=== PATIENT | male | born 1970 | race Caucasian/White ===

== ENCOUNTER 2021-02-24 01:56 | Inpatient (IN) | payer OTHER, SELFPAY ==
[2021-02-24] VITALS (22 sets, daily range): BP systolic 136–179; BP diastolic 65–120; PULSE 71–141; RESP 15–29; TEMP 35.7–37.3; O2SAT 92–98; BMI 25.8
--- NOTE | ~2021-02-24 | US_ITS ---
EXAMINATION: US ABDOMEN LIMITED CLINICAL INFORMATION: Pancreatitis. Assess biliary tract. COMPARISON: CT abdomen and pelvis with contrast 02/24/2021. TECHNIQUE: Real-time imaging of the right upper quadrant abdominal viscera. FINDINGS: PANCREAS: The visualized pancreas is uniform in echogenicity with no visible pancreatic ductal dilatation. No visible pseudocyst. LIVER: The liver is mildly enlarged and smooth in contour with increased parenchymal echogenicity consistent with hepatic steatosis. There is no intrahepatic ductal dilatation. The portal vein is patent. No focal hepatic parenchymal lesion. GALLBLADDER: There is strong shadowing from the gallbladder fossa suggesting stone filled gallbladder. Patient is tender in the gallbladder fossa with transducer compression. COMMON BILE DUCT: Enlarged measuring 0.9-1.2 cm and caliber. No visible obstructing calculus. RIGHT KIDNEY: Normal. No hydronephrosis. No renal calculi or focal parenchymal lesions. The kidney measures 11.2 cm in maximum dimension. FREE FLUID: There is mild ascites around the liver. US/US abdomen limited IMPRESSION: 1. Strong shadowing from the gallbladder fossa suggesting stone filled gallbladder and consistent with recent CT abdomen. Common duct distended 0.9-1.2 cm. No intrahepatic ductal dilatation. 2. Pancreas partly obscured by bowel gas. Visualized portions show no pancreatic ductal distention or pseudocyst. 3. Hepatic steatosis. Mild ascites.
--- NOTE | ~2021-02-24 | CT_ITS ---
EXAMINATION: CT ABDOMEN AND PELVIS WITH CONTRAST CLINICAL INFORMATION: Acute pancreatitis COMPARISON: Ultrasound abdomen 02/24/2021 TECHNIQUE: Multidetector volumetric images were obtained from the superior aspect of the liver through the pubic symphysis following administration 85 mL of Omnipaque 350 intravenous contrast. Sagittal and coronal reformatted images were obtained on the technologist's workstation. Oral contrast: No This CT examination was performed using dose optimization techniques as appropriate, variously including the following: *Automated exposure control *Adjustment of mA and/or kV according to patient size (this includes techniques or standardized protocols for targeted exams where dose is matched to indication/reason for exam; i.e. extremities or head) *Use of iterative reconstruction technique DLP: 546 mGy-cm FINDINGS: LUNG BASES: There is a small left pleural effusion with left lower lobe consolidation/atelectasis. There is minimal right pleural effusion. There is lingular atelectasis as well. The heart size is normal. LIVER, GALLBLADDER, AND BILIARY TREE: The liver is normal in size, shape, and diffusely attenuated. No focal hepatic lesion or biliary ductal dilatation is present. There are several radiolucent and radiopaque gallstones in a contracted gallbladder. PANCREAS: The pancreas is diffusely enlarged, heterogeneous and peripancreatic moderate fat stranding consistent with acute pancreatitis. There is moderate fluid within the paracolic gutters. Fluid within the perihepatic and bibiana splenic space. SPLEEN: The spleen is unremarkable. ADRENAL GLANDS: Unremarkable. KIDNEYS AND URETERS: The kidneys are normal in size, shape, and attenuation. No hydronephrosis, hydroureter, or calculi seen. No perinephric stranding. BLADDER: Unremarkable. GASTROINTESTINAL TRACT: There is scattered stool, diverticuli and gas seen throughout the colon without distention. The small bowel loops are normal caliber. ABDOMINAL WALL: There is mild haziness in the periumbilical space likely fat stranding with a small hernia. LYMPH NODES: Normal. VASCULAR: Unremarkable. PELVIC VISCERA: Unremarkable. OSSEOUS STRUCTURES: Unremarkable. CT/CT abdomen pelvis w con IMPRESSION: Diffuse acute pancreatitis, edema with moderate ascites seen extending throughout the entire abdomen and pelvis. There is no necrotizing pancreatitis Diffuse hypoattenuation of liver likely fatty infiltration. Suspect small umbilical hernia with fat stranding.
--- NOTE | ~2021-02-24 | CT_ITS ---
EXAMINATION: CT ABDOMEN AND PELVIS WITH CONTRAST CLINICAL INFORMATION: Abdominal pain COMPARISON: None TECHNIQUE: Multidetector volumetric images were obtained from the superior aspect of the liver through the pubic symphysis following administration 85 mL of Omnipaque 350 intravenous contrast. Sagittal and coronal reformatted images were obtained on the technologist's workstation. Oral contrast: No This CT examination was performed using dose optimization techniques as appropriate, variously including the following: *Automated exposure control *Adjustment of mA and/or kV according to patient size (this includes techniques or standardized protocols for targeted exams where dose is matched to indication/reason for exam; i.e. extremities or head) *Use of iterative reconstruction technique DLP: 591 mGy-cm FINDINGS: LUNG BASES: The visualized lung bases are unremarkable. LIVER, GALLBLADDER, AND BILIARY TREE: The liver demonstrates diffuse hypoattenuation consistent with steatosis. No focal hepatic lesion or biliary ductal dilatation is present. Gallbladder appears partially contracted and contains multiple gallstones. Common bile duct is nondilated. PANCREAS: There is extensive peripancreatic stranding and fluid consistent with pancreatitis, without focal collection. Fluid tracks along the paracolic gutters and the pelvis. There is mild hypoattenuation of some regions of the pancreatic head and body, which could reflect developing necrosis. SPLEEN: Unremarkable. ADRENAL GLANDS: Unremarkable. KIDNEYS AND URETERS: The kidneys are normal in size, shape, and attenuation. No hydronephrosis, hydroureter, or obstructing calculi seen. BLADDER: Unremarkable. GASTROINTESTINAL TRACT: No evidence of bowel obstruction. There is some stranding adjacent to the colon in the right abdomen which is favored to be reactive from pancreatitis. No free air is seen. ABDOMINAL WALL: No significant hernia is appreciated. LYMPH NODES: Normal. VASCULAR: Unremarkable. PELVIC VISCERA: Unremarkable. OSSEOUS STRUCTURES: Asymmetric degenerative change of the left sacroiliac joint, with minimal degenerative change in the right. CT/CT abdomen pelvis w con IMPRESSION: 1. Extensive peripancreatic inflammation consistent with pancreatitis. Regions of mild hypoattenuation in the pancreatic head and body could represent developing necrosis. Peripancreatic fluid is also present, extending along the paracolic gutters into the pelvis without focal collection. 2. Contracted gallbladder with multiple gallstones. 3. Hepatic steatosis.
--- NOTE | ~2021-02-24 | XR_ITS ---
EXAMINATION: XR CHEST CLINICAL INFORMATION: Shortness of breath COMPARISON: CT 02/24/2021 TECHNIQUE: Frontal view of the chest was obtained. FINDINGS: The lungs are mildly hypoinflated. Streaky bibasilar opacities are present, left greater than right and new from prior, suggesting atelectasis. Upper lungs are well-aerated. No evidence of pneumothorax or significant pleural effusion. The cardiomediastinal contour is unremarkable. No acute osseous findings are seen. XR/XR chest 1V IMPRESSION: New streaky bibasilar opacities, left greater than right, suggesting atelectasis.
--- NOTE | ~2021-02-24 | XR_ITS ---
EXAMINATION: XR ABDOMEN COMPLETE CLINICAL INDICATION: Abdominal pain, pancreatitis/necrosis, question perforation COMPARISON: CT 02/24/2021 TECHNIQUE: 2 views of the abdomen. FINDINGS: No intra-abdominal free air is seen. The bowel gas pattern is nonobstructive. Scattered stool is present in the colon. No suspicious calcifications are seen. There are streaky opacities at the lung bases, left greater than right, suggesting atelectasis. No acute osseous findings are seen. XR/XR abdomen min 2V IMPRESSION: No evidence of intra-abdominal free air.
[2021-02-24 02:54] LABS: Basophils Percent Auto 0.1 % (0-2); Hematocrit 48.8 % (42-52); Hemoglobin 17.1 g/dl (14.0-18.0); Imm Gran Abs Auto 0.07 X10*3/uL (0.00-0.03); Imm Gran Pct Auto 0.5 % (0.0-0.4); Lymphocytes Absolute Auto 0.3 X10*3/uL (1.2-4.9); Lymphocytes Percent Auto 1.8 % (20-40); Mean Corpuscular Hemoglobin 31.7 pg (27.0-33.0); Mean Corpuscular Volume 90.5 fL (80-98); Mean Platelet Volume 8.9 fL (9.4-12.4); Monocytes Absolute Auto 0.7 X10*3/uL (0.1-1.2); Monocytes Percent Auto 4.7 % (2-11); Neutrophils Absolute Auto 13.6 X10*3/uL (2.0-8.3); Neutrophils Percent Auto 92.9 % (45-73); Platelet Count 311 X10*3/uL (160-400); Red Blood Count 5.39 X10*6/uL (4.60-5.80); Red Cell Distribution Width 13.1 % (11.0-16.0); SCAN SMEAR FLAG 1; White Blood Count 14.6 X10*3/uL (4.8-10.8)
[2021-02-24 02:56] LABS: MANUAL DIFF FLAG SCAN
[2021-02-24 02:59] LABS: Glucose Urine UA 250 MG/DL (NEG); Leukocyte Esterase Urine NEG (NEG); Nitrite Urine POS (NEG); PH 5.5 (5.0-8.0); Specific Gravity - Urine >= 1.030 (1.005-1.025); UACC Culture Trigger YES; Urine Blood TRACE (NEG); Urine Ketones >=80 MG/DL (NEG); Urine Protein 2+ MG/DL (NEG-TRACE)
[2021-02-24 03:00] LABS: Appearance Urine TURBID; Color Urine ORANGE
[2021-02-24 03:13] LABS: Amorphous Sediment Urine 4+ /LPF; RBC Urine 0 /HPF (0); WBC Urine 0 /HPF (0-4)
[2021-02-24 03:15] LABS: SLIDE REVIEW VERIFIED
[2021-02-24 03:23] LABS: Ethanol < 10 mg/dL
[2021-02-24 03:26] LABS: Alanine Aminotransferase 619 U/L (0-40); Albumin Level 4.8 g/dL (3.5-5.0); Alkaline Phosphatase 113 U/L (39-117); Anion Gap 19 (12-20); Aspartate Amino Transferase 388 U/L (5-37); Bilirubin Direct 1.8 mg/dL (0.0-0.5); Bilirubin Total 2.9 mg/dL (0.0-1.0); Blood Urea Nitrogen 17 mg/dL (9-16); Calcium 10.1 mg/dL (8.4-10.2); Carbon Dioxide 23 mmol/L (22-29); Chloride 96 mmol/L (96-108); Creatinine Clr Calc Pharmacy 94.1; Estimated Glomerular Filt Rate > 60; Glucose Random 223 mg/dL (60-115); Lipase 1049 U/L (8-78); Potassium 4.2 mmol/L (3.3-5.1); Sodium 134 mmol/L (135-145); Total Protein 8.3 g/dL (6.5-8.0)
--- NOTE | 2021-02-24 04:40 | ED.ABDPAIN ---
HPI - Abdominal Pain General Chief Complaint: Abdominal Pain Stated Complaint: GI issues Time Seen by Provider: 02/24/21 03:05 Source: patient Mode of arrival: ambulatory History of Present Illness HPI narrative: 50-year-old male without significant past medical history other than daily drinker and states he drink yesterday and then developed acute onset of abdominal pain with chills and nausea but denies any vomiting or diarrhea and denies any past surgical history. Otherwise, patient denies shortness of breath, chest pain/palpitations, urinary pain/burning/frequency. Patient denies ever having any withdrawal symptoms from abstaining from alcohol. Related Data Allergies Allergy/AdvReac Type Severity Reaction Status Date / Time OPIATES Allergy Intermediate VOMITING Uncoded 04/25/20 16:30 narcotics Allergy Unknown Uncoded 05/02/12 00:00 Review of Systems Review of Systems Pertinent positives and negatives as stated in HPI 10 point review of systems is otherwise negative. Physical Exam Vital Signs: Vital Signs: Last Vital Signs Temp 98.4 F 02/24/21 02:13 Pulse 88 02/24/21 05:10 Resp 15 02/24/21 05:10 BP 179/105 H 02/24/21 05:10 Pulse Ox 97 02/24/21 05:10 Body Mass Index 25.8 VITAL SIGNS: Reviewed. GENERAL: Well developed, well nourished, in no acute distress. HEAD: Normocephalic/atraumatic EYES: PERRLA, EOMI with icterus noted OROPHARYNX: no oral lesions noted, posterior pharynx clear and non-erythematous without noted tonsillar enlargement/erythema/exudates NECK: Supple, no adenopathy LUNGS: Normal breath sounds. No adventitious sounds or accessory muscle use. SpO2<98> CARDIOVASCULAR: Regular rate and rhythm without noted murmurs ABDOMEN: Soft, diffusely tender, non-distended with bowel sounds. Voluntary guarding MUSCULOSKELETAL: No tenderness, deformities, or effusions noted on gross inspection. EXTREMITIES: No cyanosis, clubbing or edema. SKIN: Inspection of the skin reveals no rashes, but noted jaundice and mild diaphoresis NEUROLOGIC: Alert and oriented x 4. Strength and sensation to light touch were grossly intact x 4. Course Course Course Narrative: 50-year-old male with history and clinical presentation consistent with pancreatitis favors alcoholic versus biliary. Review of all investigations positive for acute pancreatitis and will evaluate for possible biliary etiology. MDM - Abdominal Pain Lab Data Result diagrams: 02/24/21 02:47 02/24/21 02:47 Labs: Lab Results 02/24/21 02/24/21 02/24/21 Range/Units 02:47 02:47 02:47 WBC 14.6 H (4.8-10.8) X10*3/uL RBC 5.39 (4.60-5.80) X10*6/uL Hgb 17.1 (14.0-18.0) g/dl Hct 48.8 (42-52) % MCV 90.5 (80-98) fL MCH 31.7 (27.0-33.0) pg MCHC 35.0 (31.0-36.0) g/dl RDW 13.1 (11.0-16.0) % Plt Count 311 (160-400) X10*3/uL MPV 8.9 L (9.4-12.4) fL Immature Gran % (Auto) 0.5 H (0.0-0.4) % Neut % (Auto) 92.9 H (45-73) % Lymph % (Auto) 1.8 L (20-40) % Clarke % (Auto) 4.7 (2-11) % Eos % (Auto) 0.0 (0-4) % Baso % (Auto) 0.1 (0-2) % Lymph # (Auto) 0.3 L (1.2-4.9) X10*3/uL Clarke # (Auto) 0.7 (0.1-1.2) X10*3/uL Eos # (Auto) 0.0 (0.0-0.4) X10*3/uL Baso # (Auto) 0.0 (0.0-0.2) X10*3/uL Abs Immat Gran (auto) 0.07 H (0.00-0.03) X10*3/uL Absolute Neuts (auto) 13.6 H (2.0-8.3) X10*3/uL Absolute Nucleated RBC 0.000 (0.0-0.012) X10*3/uL Nucleated RBC % (auto) 0.0 (0.0-0.2) /100WBC Smear Tech's Comments VERIFIED Sodium 134 L (135-145) mmol/L Potassium 4.2 (3.3-5.1) mmol/L Chloride 96 (96-108) mmol/L Carbon Dioxide 23 (22-29) mmol/L Anion Gap 19 (12-20) BUN 17 H (9-16) mg/dL Creatinine 0.98 (0.5-1.4) mg/dL Estim Creat Clear Calc 94.1 Estimated GFR > 60 Random Glucose 223 H (60-115) mg/dL Lactic Acid (0.5-2.0) mmol/L Calcium 10.1 (8.4-10.2) mg/dL Total Bilirubin 2.9 H (0.0-1.0) mg/dL Direct Bilirubin 1.8 H (0.0-0.5) mg/dL AST 388 H (5-37) U/L ALT 619 H (0-40) U/L Alkaline Phosphatase 113 (39-117) U/L Total Protein 8.3 H (6.5-8.0) g/dL Albumin 4.8 (3.5-5.0) g/dL Lipase 1049 H (8-78) U/L Urine Color Urine Appearance Urine pH (5.0-8.0) Ur Specific [place] (1.005-1.025) Urine Protein (NEG-TRACE) MG/DL Urine Glucose (UA) (NEG) MG/DL Urine Ketones (NEG) MG/DL Urine Blood (NEG) Urine Nitrite (NEG) Ur Leukocyte Esterase (NEG) Urine RBC (0) /HPF Urine WBC (0-4) /HPF Ur Squamous Epith Cells /LPF Amorphous Sediment /LPF Urine Bacteria /LPF Ethyl Alcohol < 10 mg/dL COVID-19 (ACE) (Negative) COVID-19 Clin Com 02/24/21 02/24/21 02/24/21 Range/Units 02:47 04:52 05:09 WBC (4.8-10.8) X10*3/uL RBC (4.60-5.80) X10*6/uL Hgb (14.0-18.0) g/dl Hct (42-52) % MCV (80-98) fL MCH (27.0-33.0) pg MCHC (31.0-36.0) g/dl RDW (11.0-16.0) % Plt Count (160-400) X10*3/uL MPV (9.4-12.4) fL Immature Gran % (Auto) (0.0-0.4) % Neut % (Auto) (45-73) % Lymph % (Auto) (20-40) % Clarke % (Auto) (2-11) % Eos % (Auto) (0-4) % Baso % (Auto) (0-2) % Lymph # (Auto) (1.2-4.9) X10*3/uL [place] # (Auto) (0.1-1.2) X10*3/uL Eos # (Auto) (0.0-0.4) X10*3/uL Baso # (Auto) (0.0-0.2) X10*3/uL Abs Immat Gran (auto) (0.00-0.03) X10*3/uL Absolute Neuts (auto) (2.0-8.3) X10*3/uL Absolute Nucleated RBC (0.0-0.012) X10*3/uL Nucleated RBC % (auto) (0.0-0.2) /100WBC Smear Tech's Comments Sodium (135-145) mmol/L Potassium (3.3-5.1) mmol/L Chloride (96-108) mmol/L Carbon Dioxide (22-29) mmol/L Anion Gap (12-20) BUN (9-16) mg/dL Creatinine (0.5-1.4) mg/dL Estim Creat Clear Calc Estimated GFR Random Glucose (60-115) mg/dL Lactic Acid 3.4 H* (0.5-2.0) mmol/L Calcium (8.4-10.2) mg/dL Total Bilirubin (0.0-1.0) mg/dL Direct Bilirubin (0.0-0.5) mg/dL AST (5-37) U/L ALT (0-40) U/L Alkaline Phosphatase (39-117) U/L Total Protein (6.5-8.0) g/dL Albumin (3.5-5.0) g/dL Lipase (8-78) U/L Urine Color ORANGE Urine Appearance TURBID Urine pH 5.5 (5.0-8.0) Ur Specific [place] >= 1.030 H (1.005-1.025) Urine Protein 2+ H (NEG-TRACE) MG/DL Urine Glucose (UA) 250 H (NEG) MG/DL Urine Ketones >=80 (NEG) MG/DL Urine Blood TRACE (NEG) Urine Nitrite POS H (NEG) Ur Leukocyte Esterase NEG (NEG) Urine RBC 0 (0) /HPF Urine WBC 0 (0-4) /HPF Ur Squamous Epith Cells NONE /LPF Amorphous Sediment 4+ /LPF Urine Bacteria NONE /LPF Ethyl Alcohol mg/dL COVID-19 (ACE) Negative (Negative) COVID-19 Clin Com See Note Discharge Plan Discharge Clinical Impression: Acute pancreatitis, Sepsis Patient Disposition: Admitted As Inpatient [facility] Past Medical History Source: nursing notes reviewed Social History Social History Advance Directives: No Advance Directives Information Provided: No
[2021-02-24] MEDS: 0.9 % Sodium Chloride 2,000 ML 999 ML IV ×2 (04:58→06:54)
[2021-02-24] MEDS: HYDROmorphone HCl 0.5 MG/0.5 ML SYRINGE IVPUSH (04:58)
--- NOTE | 2021-02-24 05:08 | PC.NURSE ---
18g IV access established in left AC. Labs drawn and sent for analysis. Normal Saline 2L infusing per MD order, and medicated with Dilaudid as ordered. Pt's also at the bedside. Pt c/o upper abdominal pain & spasms for the past 17 hours. Pt guarding, reports 9 out of 10 pain at this time. Sinus tachycardia on the monitor 110-120, elevated BP 170/110s. Primary RN (Naye Jackson) aware. Will continue to monitor.
[2021-02-24 05:22] LABS: Lactic Acid 3.4 mmol/L (0.5-2.0)
[2021-02-24 05:32] LABS: COVID-19 Test Negative (Negative); IDNOW Serial# 9DD0AD1C
[2021-02-24] MEDS: iohexoL 350 MG/ML 100 ML INFUS..BTL 85 ML IV (05:37)
[2021-02-24] MEDS: Piperacillin Sodium/Tazobactam 3.375 GM in 0.9 % Sodium Chloride 50 ML IV (06:55)
[2021-02-24 06:56] LABS: Reflex Lactate? Lactic Acid Added
--- NOTE | 2021-02-24 08:15 | PC.NURSE ---
dr. navarro at bedside updating pt/family of plan of care.
[2021-02-24 08:18] LABS: ~Lactic Acid-LAB USE ONLY 1.9 mmol/L (0.5-2.0)
[2021-02-24] MEDS: ondansetron HCL 4 MG/2 ML VIAL IVPUSH ×2 (08:22→16:48)
[2021-02-24] MEDS: HYDROmorphone HCl 1 MG/ML SYRINGE IVPUSH ×2 (08:22→11:22)
--- NOTE | 2021-02-24 09:59 | P.CNGI_ITS ---
History of Present Illness Data of Consult Service Date: 02/24/21 Requesting physician: Rubi Arce Primary Care Provider: None Physician HPI Reason for consult: pancreatitis 50-year-old male with no significant past medical history who I am asked to see for assessment of pancreatitis. He presented to the ED with severe upper abdominal pain 10/10 radiating across the whole abdomen. this started yesterday and was preceded by bilious emesis and nausea. he never had this before, and denies fever, rectla bleeding, melena. Pain is worse with lying and deep breathing. He does drink alcohol-Wolof cream (17%) daily for many years. He uses mmko-[id number] ibuprofen and Tylenol generally once or twice a week. He was noted to have significantly elevated LFTs - AST 388, ALT 619, total b ilirubin 2.9, w/ lipase level of 1049. CT scan of the abdomen showed extensive bibiana pancreatic inflammation consistent with pancreatitis. There were regions of mild hypoattenuation in the pancreatic head and body which could represent developing necrosis as well as gallstones. There is a family history of gallstones in his mother and brother Review of Systems Eyes: Eyes: Reports requires corrective lenses ENT: Reports dizziness (When standing, began yesterday after onset of pain) and Reports post nasal drip Cardiovascular: Cardiovascular: Denies chest pain, Denies syncope, Denies palpitations and Denies dyspnea Respiratory: Respiratory: Denies cough, Reports pain on inspiration (Abdominal pain) and Denies dyspnea Gastrointestinal: Gastrointestinal: Reports as per HPI Genitourinary: Genitourinary: Denies dysuria and Denies urinary frequency Neurologic: Reports dizziness (When standing, began yesterday after onset of pain) and Denies syncope Endocrine: Endocrine: Denies palpitations Hematologic/Lymphatic: Hematologic/Lymphatic: Denies easy bleeding and Denies easy bruising Allergic/Immunologic: Allergic/Immunologic: Denies urticaria PMFSH Past Medical History Medical History No significant medical problems Family History Family History (Updated 02/24/21 @ 11:40 by Frida Harman MD) Brother Cholelithiasis Pertinent family history: Gall Stones in mother and brother Social History Social History Alcohol intake: current Alcohol intake frequency: 0-2 drinks per day Patient Tobacco Use Status: Never used Tobacco Use of substances other than those prescribed or required for medical reasons: Yes Substance Use Type: Marijuana Substance Use Frequency: Occasionally Advance Directives: No Advance Directives Information Provided: No Meds Allergies Allergy/AdvReac Type Severity Reaction Status Date / Time OPIATES Allergy Intermediate VOMITING Uncoded 04/25/20 16:30 narcotics Allergy Unknown Uncoded 05/02/12 00:00 Home Medications Medication Instructions Recorded Confirmed Last Taken Type No Known Home Meds 02/24/21 02/24/21 Unknown History Physical Exam Vital Signs: Vital Signs: Last Vital Signs Temp 98.7 F 02/24/21 07:58 Pulse 104 H 02/24/21 09:22 Resp 15 02/24/21 09:22 BP 163/107 H 02/24/21 09:22 Pulse Ox 94 02/24/21 09:22 Body Mass Index 25.8 Const: Other: Constitutional - uncomfortable Eyes - PERRLA, EOMI Cardiovascular - S1S2, RRR, No edema Respiratory - Normal lung expansion, Normal respiratory effort, No respiratory distress, CTA bilaterally Gastrointestinal - Diffuse tenderness without rebound or guarding - No CVA tenderness Extremities - no calf tenderness bilaterally, no swelling Musculoskeletal - Normal inspection, normal ROM Skin - Warm/Dry Neurological - Alert & oriented x3, No focal deficit Psychological - Appropriate affect General: cooperative, healthy appearing, no acute distress and alert HENMT: Head: Yes normocephalic and Yes atraumatic Eyes: EOM: EOMs intact bilaterally Neck: Neck: Yes trachea midline and Yes supple Resp: Effort & Inspection: normal respiratory effort Auscultation: clear to auscultation bilaterally Cardio: Rate: regular rate Rhythm: regular rhythm GI: Other: Soft, nondistended, diffusely tender most significantly in right upper quadrant and epigastrium with associated rebound, no palpable masses or organomegaly, no guarding Skin: Other: Normal color, warm and dry Extrem: General: Yes normal to inspection Psych: Affect: normal affect Insight: Good insight present (Psych) Results Labs CBC & Chem 7: 02/24/21 02:47 02/24/21 02:47 Labs: Short CBC 02/24/21 Range/Units 02:47 WBC 14.6 H (4.8-10.8) X10*3/uL Hgb 17.1 (14.0-18.0) g/dl Hct 48.8 (42-52) % Plt Count 311 (160-400) X10*3/uL BMP 02/24/21 02:47 Sodium 134 L Potassium 4.2 Chloride 96 Carbon Dioxide 23 BUN 17 H Creatinine 0.98 Calcium 10.1 Liver Function 02/24/21 Range/Units 02:47 Total Bilirubin 2.9 H (0.0-1.0) mg/dL Direct Bilirubin 1.8 H (0.0-0.5) mg/dL AST 388 H (5-37) U/L ALT 619 H (0-40) U/L Alkaline Phosphatase 113 (39-117) U/L Albumin 4.8 (3.5-5.0) g/dL Urine 02/24/21 Range/Units 02:47 Urine Color ORANGE Urine Appearance TURBID Urine pH 5.5 (5.0-8.0) Ur Specific [place] >= 1.030 H (1.005-1.025) Urine Protein 2+ H (NEG-TRACE) MG/DL Urine Glucose (UA) 250 H (NEG) MG/DL Assessment and Plan (1) Cholelithiasis: Status: Acute (2) Acute pancreatitis: Status: Acute (3) UTI (urinary tract infection): Status: Acute 1/ Acute pancreatitis prob 2.2 gallstones, worsened by concurrent smoking and alcohol use. BISAP score at this moment is 1 with good prognosis inspite of the dramatic presentation and CT images. HE may also be diabetic and appears to have a UTI with UA pos for nitrites. PLAN: 1/ fluid resuscitation w/ saline or LR 5-10 ml/kg per hour 2/ clears and advance diet as tolerated 3/ analgesia 4/ check a1c and trigs 5/ If LFT cont to climb then MRCP to check for CBD stones, but hopefully he has passed these, otherwise he may need ERCP 6/ surgical consult for future cholecystectomy 7/ treat UTI with standard ABX, check for G/C 8/ smoking and alcohol cessation advice given to reduce risk of chronic pancreatitis progression. (4) Abnormal LFTs: Status: Acute Procedures Date of Service Date of Service: 02/24/21
--- NOTE | 2021-02-24 10:15 | PC.NURSE ---
Lemuel MORA AT BEDSIDE, PT AWARE OF PLAN OF CARE FOR ADMISSION TO HOSP.
--- NOTE | 2021-02-24 11:00 | PC.NURSE ---
dr. escobar at bedside pt/family aware of plan of care
--- NOTE | 2021-02-24 11:02 | P.HPHOSP_ITS ---
History of Present Illness Date of Service: 02/24/21 Chief Complaint: abdominal pain This is a 50-year-old male with no significant past medical history who presents to the hospital complaints of severe abdominal pain with associated nausea and vomiting of about 1 day duration. Patient reports that 2 evenings ago he had a meal consisting of seafood (which she reports some intolerance to) and he woke up the next morning with nausea and vomiting. He reports that this progressed to severe abdominal pain which was sudden in onset and became so unbearable that he came to the emergency room. Patient endorses daily alcohol use - reports drinking 2 cups of [place] cream. He reports that he has been doing this for quite a while. Denies more significant use on the weekends. He also endorses a family history of gallstones in his mother and brother. He does endorse iced-odm-jrcjxjk ibuprofen and Tylenol use generally once or twice a week. Upon arrival to the emergency room patient was noted to have significantly elevated LFTs - AST 388, ALT 619, total bilirubin 2.9. He was also noted to have an lipase level of 1049. CT scan of the abdomen showed extensive bibiana pancreatic inflammation consistent with pancreatitis. There were regions of mild hypoattenuation in the pancreatic head and body which could represent developing necrosis. Out of concern for this possible developing necrosis - a requested that the emergency room physician discussed the case with General surgery. Review of Systems Review of Systems: General - denies fevers or chills, denies weakness or fatigue HEENT -denies blurred vision, denies headache, denies sore throat Cardiovascular - denies chest pain or palpitations, denies edema Respiratory - denies shortness of breath, coughing, wheezing Gastrointestinal - +abdominal pain, nausea, vomiting, - denies flank pain, denies dysuria, denies frequency or urgency Musculoskeletal - denies back pain, denies hip pain, denies knee pain, denies shoulder pain Neurological - denies any focal weakness or numbness Skin, denies any bruising or redness Psychiatric - denies any suicidal ideation, hallucinations, homicidal ideation Endocrinology - denies intolerance to hot / cold temperatures [facility] Medical History (Updated 02/24/21 @ 11:18 by Rick Cooper MD) No significant medical problems Pertinent family history: Gall Stones in mother and brother Social History Alcohol intake: current Alcohol intake frequency: 0-2 drinks per day Patient Tobacco Use Status: Never used Tobacco Use of substances other than those prescribed or required for medical reasons: Yes Substance Use Type: Marijuana Substance Use Frequency: Occasionally Advance Directives: No Advance Directives Information Provided: No Meds Allergies Allergy/AdvReac Type Severity Reaction Status Date / Time OPIATES Allergy Intermediate VOMITING Uncoded 04/25/20 16:30 narcotics Allergy Unknown Uncoded 05/02/12 00:00 Active Medications: Current Medications Generic Name Dose Route Start Last Admin Trade Name Freq PRN Reason Stop Dose Admin Enoxaparin Sodium 40 mg 02/24/21 18:00 Enoxaparin Sodium 40 Mg/0.4 Ml Syringe SUBCUT Q24H MIGEL Hydromorphone HCl 1 mg 02/24/21 10:55 Hydromorphone Hcl 0.5 Mg/0.5 Ml Syringe IVPUSH Q4H PRN Pain, Severe (Pain Scale 7-10) Lactated Ringer's 1,000 mls @ 150 mls/hr 02/24/21 11:00 Lr IVCONT 02/25/21 06:59 .[id number] MIGEL Ondansetron HCl 4 mg 02/24/21 10:51 Ondansetron Hcl 4 Mg/2 Ml Vial IVPUSH Q8H PRN Nausea and Vomiting Sodium Chloride 3 ml 02/24/21 16:00 0.9 % Sodium Chloride Flush 3 Ml Syringe IVFLUSH QSHIFT [facility] Home Medications Medication Instructions Recorded Confirmed Last Taken Type No Known Home Meds 02/24/21 02/24/21 Unknown History Physical Exam Vital Signs and Narrative: Vital Signs: Last Vital Signs Temp 98.7 F 02/24/21 07:58 Pulse 104 H 02/24/21 09:22 Resp 15 02/24/21 09:22 BP 163/107 H 02/24/21 09:22 Pulse Ox 94 02/24/21 09:22 Body Mass Index 25.8 Const: Other: Constitutional - in distress, vomiting Eyes - PERRLA, EOMI Cardiovascular - S1S2, RRR, No edema Respiratory - Normal lung expansion, Normal respiratory effort, No respiratory distress, CTA bilaterally Gastrointestinal - Diffuse tenderness without rebound or guarding - No CVA tenderness Extremities - no calf tenderness bilaterally, no swelling Musculoskeletal - Normal inspection, normal ROM Skin - Warm/Dry Neurological - Alert & oriented x3, No focal deficit Psychological - Appropriate affect Results Labs CBC and Chem 7: 02/24/21 02:47 02/24/21 02:47 Labs: Laboratory Results - last 24 hr 02/24/21 02/24/21 02/24/21 02:47 02:47 02:47 MCV 90.5 MCH 31.7 MCHC 35.0 RDW 13.1 Plt Count 311 MPV 8.9 L Immature Gran % (Auto) 0.5 H Neut % (Auto) 92.9 H Lymph % (Auto) 1.8 L [place] % (Auto) 4.7 Eos % (Auto) 0.0 Baso % (Auto) 0.1 Lymph # (Auto) 0.3 L [place] # (Auto) 0.7 Eos # (Auto) 0.0 Baso # (Auto) 0.0 Abs Immat Gran (auto) 0.07 H Absolute Neuts (auto) 13.6 H Absolute Nucleated RBC 0.000 Nucleated RBC % (auto) 0.0 Smear Tech's Comments VERIFIED Anion Gap 19 Estim Creat Clear Calc 94.1 Estimated GFR > 60 Random Glucose 223 H Lactic Acid Lactic Acid Fup @ 2Hr Calcium 10.1 Total Bilirubin 2.9 H Direct Bilirubin 1.8 H AST 388 H ALT 619 H Alkaline Phosphatase 113 Total Protein 8.3 H Albumin 4.8 Lipase 1049 H Urine Color Urine Appearance Urine pH Ur Specific [place] Urine Protein Urine Glucose (UA) Urine Ketones Urine Blood Urine Nitrite Ur Leukocyte Esterase Urine RBC Urine WBC Ur Squamous Epith Cells Amorphous Sediment Urine Bacteria Ethyl Alcohol < 10 COVID-19 (ACE) COVID-19 Clin Com 02/24/21 02/24/21 02/24/21 02:47 04:52 05:09 MCV MCH MCHC RDW Plt Count MPV Immature Gran % (Auto) Neut % (Auto) Lymph % (Auto) [place] % (Auto) Eos % (Auto) Baso % (Auto) Lymph # (Auto) [place] # (Auto) Eos # (Auto) Baso # (Auto) Abs Immat Gran (auto) Absolute Neuts (auto) Absolute Nucleated RBC Nucleated RBC % (auto) Smear Tech's Comments Anion Gap Estim Creat Clear Calc Estimated GFR Random Glucose Lactic Acid 3.4 H* Lactic Acid Fup @ 2Hr Calcium Total Bilirubin Direct Bilirubin AST ALT Alkaline Phosphatase Total Protein Albumin Lipase Urine Color ORANGE Urine Appearance TURBID Urine pH 5.5 Ur Specific [place] >= 1.030 H Urine Protein 2+ H Urine Glucose (UA) 250 H Urine Ketones >=80 Urine Blood TRACE Urine Nitrite POS H Ur Leukocyte Esterase NEG Urine RBC 0 Urine WBC 0 Ur Squamous Epith Cells NONE Amorphous Sediment 4+ Urine Bacteria NONE Ethyl Alcohol COVID-19 (ACE) Negative COVID-19 Clin Com See Note 02/24/21 07:54 MCV MCH MCHC RDW Plt Count MPV Immature Gran % (Auto) Neut % (Auto) Lymph % (Auto) [place] % (Auto) Eos % (Auto) Baso % (Auto) Lymph # (Auto) [place] # (Auto) Eos # (Auto) Baso # (Auto) Abs Immat Gran (auto) Absolute Neuts (auto) Absolute Nucleated RBC Nucleated RBC % (auto) Smear Tech's Comments Anion Gap Estim Creat Clear Calc Estimated GFR Random Glucose Lactic Acid Lactic Acid Fup @ 2Hr 1.9 Calcium Total Bilirubin Direct Bilirubin AST ALT Alkaline Phosphatase Total Protein Albumin Lipase Urine Color Urine Appearance Urine pH Ur Specific [place] Urine Protein Urine Glucose (UA) Urine Ketones Urine Blood Urine Nitrite Ur Leukocyte Esterase Urine RBC Urine WBC Ur Squamous Epith Cells Amorphous Sediment Urine Bacteria Ethyl Alcohol COVID-19 (ACE) COVID-19 Clin Com Imaging Radiologist's Impressions: Impressions Abdomen/Pelvis CT 02/24/21 04:34 IMPRESSION: 1. Extensive peripancreatic inflammation consistent with pancreatitis. Regions of mild hypoattenuation in the pancreatic head and body could represent developing necrosis. Peripancreatic fluid is also present, extending along the paracolic gutters into the pelvis without focal collection. 2. Contracted gallbladder with multiple gallstones. 3. Hepatic steatosis. Assessment and Plan (1) No significant medical problems: Status: Inactive This is a 50 yo M with no significant PMH who presents to the hospital with sudden on set abdominal pain with associated nausea and vomiting. He does have a history of daily drinking 2-3 drinks. He will be admitted for acute pancreaitits. 1. Acute pancreatitis secondary to alcohol vs gall stones NPO IV with LR @ 150 cc/hr IV pain control GI and General Surgery evaluations repeat CT scan in 48 hours or sooner if not improved 2. Leukocytosis likely reactive not due to sepsis observe 3. Elevated LFTs likely same cause as his pancreatitis Trend 4. Lactic acidosis improved with fluids Full Code DVT pptx, Lovenox Endorses Kamla (his significant other) Quality Stroke Does the patient have a stroke diagnosis?: No VTE Prior VTE?: No VTE Risk Level:: Medical - moderate - high VTE Device Contraindication: N/A - Device Ordered VTE Drug Contraindication: N/A - Med Ordered
[2021-02-24] MEDS: Lactated Ringers 1,000 ML 150 ML IVCONT ×2 (11:30→17:55)
--- NOTE | 2021-02-24 11:31 | P.CONGS_ITS ---
History of Present Illness Consult details Consult date: 02/24/21 Reason for consult: other (Pancreatitis) Requesting physician: Rick Cooper Narrative: This is a 50-year-old gentleman who was feeling well until yesterday morning when he had acute onset of severe epigastric pain spread to involve his entire abdomen. He had an episode of vomiting at the time of the onset of pain and again yesterday evening. He experienced chills, but no fever or diarrhea. He has not had similar pain in the past. The pain has been severe and persisten t. Over the past year so, he has experienced intermittent episodes of bilious vomiting 1st thing in the morning, which he thought was due to allergies and postnasal drip. He also reports fairly heavy alcohol intake over the past year that began when he started working from home due to the pandemic. In the emergency department, workup included CT scan of the abdomen and pelvis that demonstrated findings consistent with acute pancreatitis and evidence of possible early patchy pancreatic necrosis. The gallbladder appeared contracted and contained small gallstones. Review of Systems Eyes: Eyes: Reports requires corrective lenses ENT: Reports dizziness (When standing, began yesterday after onset of pain) and Reports post nasal drip Cardiovascular: Cardiovascular: Denies chest pain, Denies syncope, Denies palpitations and Denies dyspnea Respiratory: Respiratory: Denies cough, Reports pain on inspiration (Abdominal pain) and Denies dyspnea Gastrointestinal: Gastrointestinal: Reports as per HPI Genitourinary: Genitourinary: Denies dysuria and Denies urinary frequency Neurologic: Reports dizziness (When standing, began yesterday after onset of pain) and Denies syncope Endocrine: Endocrine: Denies palpitations Hematologic/Lymphatic: Hematologic/Lymphatic: Denies easy bleeding and Denies easy bruising Allergic/Immunologic: Allergic/Immunologic: Denies urticaria Comments: Postnasal drip spring and fall [facility] Past Medical History Medical History No significant medical problems Family History Family History (Updated 02/24/21 @ 11:40 by Frida Harman MD) Brother Cholelithiasis Social History Social History Alcohol intake: current Alcohol intake frequency: 0-2 drinks per day Patient Tobacco Use Status: Never used Tobacco Use of substances other than those prescribed or required for medical reasons: Yes Substance Use Type: Marijuana Substance Use Frequency: Occasionally Advance Directives: No Advance Directives Information Provided: No Meds Allergies Allergy/AdvReac Type Severity Reaction Status Date / Time OPIATES Allergy Intermediate VOMITING Uncoded 04/25/20 16:30 narcotics Allergy Unknown Uncoded 05/02/12 00:00 Active Medications: Current Medications Generic Name Dose Route Start Last Admin Trade Name Freq PRN Reason Stop Dose Admin Enoxaparin Sodium 40 mg 02/24/21 18:00 Enoxaparin Sodium 40 Mg/0.4 Ml Syringe SUBCUT Q24H MIGEL Hydromorphone HCl 1 mg 02/24/21 10:55 Hydromorphone Hcl 0.5 Mg/0.5 Ml Syringe IVPUSH Q4H PRN Pain, Severe (Pain Scale 7-10) Lactated Ringer's 1,000 mls @ 150 mls/hr 02/24/21 11:00 02/24/21 11:30 Lr IVCONT 02/25/21 06:59 150 mls/hr .[id number] MIGEL Administration Ondansetron HCl 4 mg 02/24/21 10:51 Ondansetron Hcl 4 Mg/2 Ml Vial IVPUSH Q8H PRN Nausea and Vomiting Sodium Chloride 3 ml 02/24/21 16:00 0.9 % Sodium Chloride Flush 3 Ml Syringe IVFLUSH QSHIFT [facility] Home Medications Medication Instructions Recorded Confirmed Last Taken Type No Known Home Meds 02/24/21 02/24/21 Unknown History Physical Exam Vital Signs: Vital Signs: Last Vital Signs Temp 99.1 F 02/24/21 11:19 Pulse 104 H 02/24/21 11:19 Resp 16 02/24/21 11:22 BP 178/120 H 02/24/21 11:19 Pulse Ox 96 02/24/21 11:19 Body Mass Index 25.8 Const: General: cooperative, healthy appearing, no acute distress and alert HENMT: Head: Yes normocephalic and Yes atraumatic Eyes: EOM: EOMs intact bilaterally Neck: Neck: Yes trachea midline and Yes supple Resp: Effort & Inspection: normal respiratory effort Auscultation: clear to auscultation bilaterally Cardio: Rate: regular rate Rhythm: regular rhythm GI: Other: Soft, nondistended, diffusely tender most significantly in right upper quadrant and epigastrium with associated rebound, no palpable masses or organomegaly, no guarding Skin: Other: Normal color, warm and dry Extrem: General: Yes normal to inspection Psych: Affect: normal affect Insight: Good insight present (Psych) Results Labs Result diagrams: 02/24/21 02:47 02/24/21 02:47 Labs: Abnormal lab results 02/24/21 02/24/21 02/24/21 Range/Units 02:47 02:47 02:47 WBC 14.6 H (4.8-10.8) X10*3/uL MPV 8.9 L (9.4-12.4) fL Immature Gran % (Auto) 0.5 H (0.0-0.4) % Neut % (Auto) 92.9 H (45-73) % Lymph % (Auto) 1.8 L (20-40) % Lymph # (Auto) 0.3 L (1.2-4.9) X10*3/uL Abs Immat Gran (auto) 0.07 H (0.00-0.03) X10*3/uL Absolute Neuts (auto) 13.6 H (2.0-8.3) X10*3/uL Sodium 134 L (135-145) mmol/L BUN 17 H (9-16) mg/dL Random Glucose 223 H (60-115) mg/dL Lactic Acid (0.5-2.0) mmol/L Total Bilirubin 2.9 H (0.0-1.0) mg/dL Direct Bilirubin 1.8 H (0.0-0.5) mg/dL AST 388 H (5-37) U/L ALT 619 H (0-40) U/L Total Protein 8.3 H (6.5-8.0) g/dL Lipase 1049 H (8-78) U/L Ur Specific [place] >= 1.030 H (1.005-1.025) Urine Protein 2+ H (NEG-TRACE) MG/DL Urine Glucose (UA) 250 H (NEG) MG/DL Urine Nitrite POS H (NEG) 02/24/21 Range/Units 04:52 WBC (4.8-10.8) X10*3/uL MPV (9.4-12.4) fL Immature Gran % (Auto) (0.0-0.4) % Neut % (Auto) (45-73) % Lymph % (Auto) (20-40) % Lymph # (Auto) (1.2-4.9) X10*3/uL Abs Immat Gran (auto) (0.00-0.03) X10*3/uL Absolute Neuts (auto) (2.0-8.3) X10*3/uL Sodium (135-145) mmol/L BUN (9-16) mg/dL Random Glucose (60-115) mg/dL Lactic Acid 3.4 H* (0.5-2.0) mmol/L Total Bilirubin (0.0-1.0) mg/dL Direct Bilirubin (0.0-0.5) mg/dL AST (5-37) U/L ALT (0-40) U/L Total Protein (6.5-8.0) g/dL Lipase (8-78) U/L Ur Specific [place] (1.005-1.025) Urine Protein (NEG-TRACE) MG/DL Urine Glucose (UA) (NEG) MG/DL Urine Nitrite (NEG) Short CBC 02/24/21 Range/Units 02:47 WBC 14.6 H (4.8-10.8) X10*3/uL Hgb 17.1 (14.0-18.0) g/dl Hct 48.8 (42-52) % Plt Count 311 (160-400) X10*3/uL BMP 02/24/21 02:47 Sodium 134 L Potassium 4.2 Chloride 96 Carbon Dioxide 23 BUN 17 H Creatinine 0.98 Calcium 10.1 Liver Function 02/24/21 Range/Units 02:47 Total Bilirubin 2.9 H (0.0-1.0) mg/dL Direct Bilirubin 1.8 H (0.0-0.5) mg/dL AST 388 H (5-37) U/L ALT 619 H (0-40) U/L Alkaline Phosphatase 113 (39-117) U/L Albumin 4.8 (3.5-5.0) g/dL Urine 02/24/21 Range/Units 02:47 Urine Color ORANGE Urine Appearance TURBID Urine pH 5.5 (5.0-8.0) Ur Specific [place] >= 1.030 H (1.005-1.025) Urine Protein 2+ H (NEG-TRACE) MG/DL Urine Glucose (UA) 250 H (NEG) MG/DL All other labs normal. Assessment and Plan (1) Acute pancreatitis: Status: Acute (2) Cholelithiasis: Status: Acute 50-year-old male presenting with acute onset of severe abdominal pain and findings consistent with acute pancreatitis. CT scan reveals gallstones. He also has a history of heavy alcohol use. We discussed the diagnosis of pancreatitis and potential etiologies. The pancreatitis may be related to gallstones or to alcohol intake. He understands that he should discontinue alcohol use. We also discussed the high risk of recurrent pancreatitis if the etiology is the gallstones. Recommend cholecystectomy once acute pancreatitis has resolved. He agrees with this recommendation. General surgery will follow along. Procedures Date of Service Date of Service: 02/24/21
[2021-02-24 11:52] LABS: INTERNATIONAL NORM RATIO 1.1 (0.9-1.1); Prothrombin Time 12.3 SEC (9.9-13.0)
--- NOTE | 2021-02-24 14:30 | PC.NURSE ---
pt had bedside ultrasound, tolerated well.
[2021-02-24] MEDS: HYDROmorphone HCl 0.5 MG/0.5 ML SYRINGE 1 MG IVPUSH ×3 (14:53→19:19)
--- NOTE | 2021-02-24 15:49 | PC.NURSE ---
Pt currently sleeping in stretcher, rr even and unlabored, no apparent distress, hr sinus tach in 110s on monitor.
--- NOTE | 2021-02-24 16:53 | PC.NURSE ---
Pt appears very uncomfortable- guarding abd, sinus tach in 120-130s, rr in 20-30s, reports 8-9/[address] Cooper aware and new orders requested.
--- NOTE | 2021-02-24 17:59 | PC.NURSE ---
Pt continues to be nauseaeted, vomiting bile, tachy and htn- no other signs or withdrawal per COW scale, reporting 7/[address] schmitt contacted.
[2021-02-24] MEDS: Enoxaparin Sodium 40 MG/0.4 ML SYRINGE SUBCUT (19:19)
[2021-02-24] MEDS: Pentoxifylline ER 400 MG TABLET.ER PO (21:25)
[2021-02-24 21:49] LABS: Triglycerides 87 mg/dL
[2021-02-25] MEDS: ondansetron HCL 4 MG/2 ML VIAL IVPUSH ×2 (00:27→18:35)
[2021-02-25] MEDS: HYDROmorphone HCl 0.5 MG/0.5 ML SYRINGE 1 MG IVPUSH ×6 (00:34→19:29)
[2021-02-25] MEDS: Lactated Ringers 1,000 ML 150 ML IVCONT ×3 (00:37→18:36)
[2021-02-25] MEDS: 0.9 % Sodium Chloride Flush 3 ML SYRINGE IVFLUSH (00:37)
--- NOTE | 2021-02-25 02:30 | MHC.PIE ---
P ABD PAIN,TACHYCARDIA I.PT WITH C/O ABD PAIN,GUARDING RIGHT SIDE,N/V,MED WITH ZOFRAN WITH LITTLE EFFECT,MED WITH DILAUDID WITH LITTLE EFFECT,HR 130-140,SINUS TACH.DR KOTHARI UPDATED AND UP TO FLOOR TO SEE PATIENT.ABD XRAY ORDERED.PT TO DEPT IN W/C. E.CONT TO MONITOR
--- NOTE | 2021-02-25 02:30 | MHC.PIE ---
P.ABD PAIN,TACHYCARDIA I.PT C/O ABD PAIN,GUARDING RIGHT SIDE,N/V,GIVEN ZOFRAN WITH LITTLE EFFECT.HR 130-140,SINUS TACH.SANIYA RUSSELL
[2021-02-25 03:27] VITALS: BP 171/92; PULSE 127; RESP 20; TEMP 36.6; O2SAT 94
[2021-02-25] MEDS: LORazepam 1 MG TABLET PO (05:21)
[2021-02-25 07:00] LABS: Hematocrit 39.5 % (42-52); Hemoglobin 13.3 g/dl (14.0-18.0); Mean Corpuscular HGB Conc 33.7 g/dl (31.0-36.0); Mean Corpuscular Hemoglobin 31.3 pg (27.0-33.0); Mean Corpuscular Volume 92.9 fL (80-98); Mean Platelet Volume 9.5 fL (9.4-12.4); Platelet Count 168 X10*3/uL (160-400); Red Blood Count 4.25 X10*6/uL (4.60-5.80); Red Cell Distribution Width 13.8 % (11.0-16.0); White Blood Count 13.1 X10*3/uL (4.8-10.8)
[2021-02-25 07:24] VITALS: BP 148/97; PULSE 118; RESP 16; TEMP 37.1; O2SAT 93
[2021-02-25 07:30] LABS: Estimated Average Glucose 131 mg/dL; Hemoglobin A1c % 6.2 %
[2021-02-25 07:40] LABS: Anion Gap 12 (12-20); Blood Urea Nitrogen 14 mg/dL (9-16); Carbon Dioxide 23 mmol/L (22-29); Chloride 101 mmol/L (96-108); Creatinine Clr Calc Pharmacy 121.3; Estimated Glomerular Filt Rate > 60; Glucose Random 177 mg/dL (60-115); Sodium 132 mmol/L (135-145)
[2021-02-25 07:41] LABS: Alanine Aminotransferase 249 U/L (0-40); Aspartate Amino Transferase 91 U/L (5-37); Bilirubin Direct 2.1 mg/dL (0.0-0.5)
[2021-02-25 07:53] LABS: Albumin Level 3.3 g/dL (3.5-5.0); Alkaline Phosphatase 71 U/L (39-117); Total Protein 5.8 g/dL (6.5-8.0)
[2021-02-25] MEDS: vancomycin HCL 1,500 MG in 0.9 % Sodium Chloride 500 ML 333.33 MG IV (08:21)
[2021-02-25 09:10] LABS: Lipase 595 U/L (8-78)
--- NOTE | 2021-02-25 10:23 | MHC.CM.PN ---
met with pt and hiss/o prior to admission pt had no servceis he is independent and does not anticipate the need for serveis when dcd,list of providers given to pt pt has own [facility] home
--- NOTE | 2021-02-25 10:37 | P.PNIM_ITS ---
Subjective Subjective Date of Service: 02/25/21 Interval History: seen and examined unchanged, still with severe pain abd distended, but passing flatus denies nausea denies sob or cough no fevers ROS General - no fevers or chills Cardiovascular - no chest pain Respiratory - no shortness of breath or cough Abdominal- +abd pain, neg nausea Physical Exam Vital Signs: Vital Signs: Last Vital Signs Temp 98.7 F 02/25/21 07:24 Pulse 118 H 02/25/21 07:24 Resp 16 02/25/21 07:24 BP 148/97 H 02/25/21 07:24 Pulse Ox 93 02/25/21 07:24 Body Mass Index 25.8 Const: Other: Constitutional - in distress, vomiting Eyes - PERRLA, EOMI Cardiovascular - S1S2, RRR, No edema Respiratory - Normal lung expansion, Normal respiratory effort, No respiratory distress, CTA bilaterally Gastrointestinal - distended but no rigidity, diffusely tender, no rebound/guarding - No CVA tenderness Extremities - no calf tenderness bilaterally, no swelling Musculoskeletal - Normal inspection, normal ROM Skin - Warm/Dry Neurological - Alert & oriented x3, No focal deficit Psychological - Appropriate affect Objective Data Current Medications Generic Name Dose Route Start Last Admin Trade Name Freq PRN Reason Stop Dose Admin Dextrose 25 gm 02/25/21 03:18 Dextrose 50 % 25 Gm/50 Ml Vial IVPUSH Q2H PRN hypoglycemia Enoxaparin Sodium 40 mg 02/24/21 18:00 02/24/21 19:19 Enoxaparin Sodium 40 Mg/0.4 Ml Syringe SUBCUT 40 mg Q24H MIGEL Administration Hydromorphone HCl 1 mg 02/25/21 07:56 02/25/21 08:22 Hydromorphone Hcl 0.5 Mg/0.5 Ml Syringe IVPUSH 1 mg Q3H PRN Administration Pain, Severe (Pain Scale 7-10) Piperacillin Sod/Tazobactam 50 mls @ 100 mls/hr 02/25/21 09:00 Sod 3.375 gm/ Sodium Chloride IV Q6H MIGEL Medication 1 each 02/25/21 08:53 No Benzodiazepines MISCELLANE DAILY MIGEL Ondansetron HCl 4 mg 02/24/21 10:51 02/25/21 00:27 Ondansetron Hcl 4 Mg/2 Ml Vial IVPUSH 4 mg Q8H PRN Administration Nausea and Vomiting Pentoxifylline 400 mg 02/24/21 21:00 02/24/21 21:25 Pentoxifylline Er 400 Mg Tablet.Er PO 400 mg TID [facility] Administration Pharmacy Consult 1 each 02/25/21 03:18 Consult Rx Vancomycin Dosing MISCELLANE DAILY PRN Consult order Phenobarbital 45 mg 02/25/21 21:00 Phenobarbital 15 Mg Tablet PO 02/27/21 09:01 BID [facility] Protocol Phenobarbital 30 mg 02/27/21 21:00 Phenobarbital 30 Mg Tablet PO 03/01/21 09:01 BID [facility] Protocol Phenobarbital 15 mg 03/02/21 09:00 Phenobarbital 15 Mg Tablet PO 03/03/21 09:01 DAILY [facility] Protocol Phenobarbital Sodium 175 mg 02/25/21 12:00 Phenobarbital Sodium 130 Mg/Ml Vial IM 02/25/21 15:01 Q3H [facility] Protocol Sodium Chloride 3 ml 02/24/21 16:00 02/25/21 08:23 0.9 % Sodium Chloride Flush 3 Ml Syringe IVFLUSH Not Given QSHIFT [facility] Labs CBC & Chem 7: 02/25/21 06:19 02/25/21 06:19 Labs: Laboratory Results - last 24 hr 02/24/21 02/24/21 02/24/21 11:27 21:07 21:07 WBC RBC Hgb Hct MCV MCH MCHC RDW Plt Count MPV Absolute Nucleated RBC Nucleated RBC % (auto) PT 12.3 INR 1.1 Sodium Potassium Chloride Carbon Dioxide Anion Gap BUN Creatinine Estim Creat Clear Calc Estimated GFR Random Glucose Estimat Average Glucose 131 Hemoglobin A1c % 6.2 Calcium Total Bilirubin Direct Bilirubin AST ALT Alkaline Phosphatase Total Protein Albumin Triglycerides 87 Lipase 02/25/21 02/25/21 02/25/21 06:19 06:19 06:19 WBC 13.1 H RBC 4.25 L D Hgb 13.3 L D Hct 39.5 L MCV 92.9 MCH 31.3 MCHC 33.7 RDW 13.8 Plt Count 168 D MPV 9.5 Absolute Nucleated RBC 0.000 Nucleated RBC % (auto) 0.0 PT INR Sodium 132 L Potassium 4.0 Chloride 101 Carbon Dioxide 23 Anion Gap 12 BUN 14 Creatinine 0.76 Estim Creat Clear Calc 121.3 Estimated GFR > 60 Random Glucose 177 H Estimat Average Glucose Hemoglobin A1c % Calcium 8.0 L D Total Bilirubin 3.0 H Direct Bilirubin 2.1 H AST 91 H ALT 249 H Alkaline Phosphatase 71 D Total Protein 5.8 L D Albumin 3.3 L D Triglycerides Lipase 595 H Microbiology Microbiology Results: Microbiology 02/24/21 Unknown Urine Culture - Final Urine clean catch - Urine link top 02/24/21 05:09 Blood Culture - Preliminary Blood - Venous No growth after 24 hours. 02/24/21 04:52 Blood Culture - Preliminary Blood - Venous No growth after 24 hours. Quality Stroke Does the patient have a stroke diagnosis?: No VTE Prior VTE?: No VTE Risk Level:: Medical - moderate - high VTE Device Contraindication: N/A - Device Ordered VTE Drug Contraindication: N/A - Med Ordered Assessment and Plan (1) Acute pancreatitis: Status: Acute Assessment and Plan: This is a 50 yo M with no significant PMH who presents to the hospital with sudden on set abdominal pain with associated nausea and vomiting. He does have a history of daily drinking 2-3 drinks. He will be admitted for acute pancreaitits. 1. Acute pancreatitis secondary to alcohol vs gallstones - favor biliary in nature, likely passed stone start clears trend LFTS (transaminases coming down, bili the same) LR @ 150 cc/hr GI and Gen surg on board IV pain control - dilaudid 1mg q3 hours for severe pain, 0.5mg for moderate pain GI and General surg on board 2. Leukocytosis still feel likely reactive but will give empiric zosyn 3. Elevated LFTs likely same cause as his pancreatitis downtrending 4. Lactic acidosis improved with fluids 5. Alcohol use will start low dose phenobarb Full Code DVT pptx, Lovenox Endorses Kamla (his significant other)
[2021-02-25] MEDS: Piperacillin Sodium/Tazobactam 3.375 GM in 0.9 % Sodium Chloride 50 ML IV ×3 (10:38→21:13)
[2021-02-25] MEDS: PHENobarbitaL sodium 130 MG/ML VIAL 234 MG IM (10:39)
[2021-02-25] MEDS: Pentoxifylline ER 400 MG TABLET.ER PO ×3 (10:40→21:14)
[2021-02-25 11:19] VITALS: BP 158/90; PULSE 123; RESP 18; TEMP 37.2; O2SAT 92
[2021-02-25 11:42] LABS: Alanine Aminotransferase 229 U/L (0-40); Albumin Level 3.4 g/dL (3.5-5.0); Alkaline Phosphatase 75 U/L (39-117); Aspartate Amino Transferase 79 U/L (5-37); Bilirubin Direct 1.9 mg/dL (0.0-0.5); Bilirubin Total 2.9 mg/dL (0.0-1.0); Total Protein 6.1 g/dL (6.5-8.0)
--- NOTE | 2021-02-25 13:35 | MHC.CM.PN ---
PT HAS QUESTIONS ABOUT HIS INS COVERAGE ,FAXED TO PRAK[facility] TILLMAN A REQUEST TO SEE PT RE SAME
[2021-02-25] MEDS: PHENobarbitaL sodium 130 MG/ML VIAL 175 MG IM ×2 (14:09→16:32)
[2021-02-25 15:12] VITALS: BP 155/101; PULSE 125; RESP 17; TEMP 37.7; O2SAT 92
[2021-02-25] MEDS: Enoxaparin Sodium 40 MG/0.4 ML SYRINGE SUBCUT (18:08)
[2021-02-25 19:02] VITALS: BP 164/96; PULSE 129; RESP 20; TEMP 37.7; O2SAT 91
[2021-02-25] MEDS: PHENobarbitaL 15 MG TABLET 45 MG PO (21:14)
[2021-02-25] MEDS: Prochlorperazine Edisylate 10 MG/2 ML VIAL 5 MG IVPUSH (23:14)
[2021-02-26] VITALS (10 sets, daily range): BP systolic 147–162; BP diastolic 88–98; PULSE 104–120; RESP 16–19; TEMP 36–37.6; O2SAT 91–94
[2021-02-26] MEDS: HYDROmorphone HCl 0.5 MG/0.5 ML SYRINGE 1 MG IVPUSH ×7 (00:29→21:57)
[2021-02-26] MEDS: Lactated Ringers 1,000 ML 150 ML IVCONT ×4 (01:37→23:32)
[2021-02-26] MEDS: Piperacillin Sodium/Tazobactam 3.375 GM in 0.9 % Sodium Chloride 50 ML IV ×4 (03:18→21:34)
[2021-02-26] MEDS: ondansetron HCL 4 MG/2 ML VIAL IVPUSH ×3 (03:19→21:26)
[2021-02-26] MEDS: PHENobarbitaL 15 MG TABLET 45 MG PO ×2 (08:09→22:03)
[2021-02-26] MEDS: Pentoxifylline ER 400 MG TABLET.ER PO ×3 (08:10→22:03)
[2021-02-26] MEDS: 0.9 % Sodium Chloride Flush 3 ML SYRINGE IVFLUSH ×2 (08:10→16:00)
[2021-02-26] MEDS: Magnesium Hydrox/Alum Hydrox 30 ML ORAL.SUSP PO ×2 (09:28→16:00)
[2021-02-26 10:03] LABS: Hematocrit 34.3 % (42-52); Hemoglobin 11.7 g/dl (14.0-18.0); Imm Gran Pct Auto 1.1 % (0.0-0.4); Lymphocytes Absolute Auto 0.5 X10*3/uL (1.2-4.9); Lymphocytes Percent Auto 5.5 % (20-40); MANUAL DIFF FLAG SCAN; Mean Corpuscular HGB Conc 34.1 g/dl (31.0-36.0); Mean Corpuscular Hemoglobin 31.5 pg (27.0-33.0); Mean Corpuscular Volume 92.5 fL (80-98); Mean Platelet Volume 9.5 fL (9.4-12.4); Monocytes Absolute Auto 0.2 X10*3/uL (0.1-1.2); Monocytes Percent Auto 2.1 % (2-11); Neutrophils Absolute Auto 8.3 X10*3/uL (2.0-8.3); Neutrophils Percent Auto 91.3 % (45-73); Platelet Count 132 X10*3/uL (160-400); Red Blood Count 3.71 X10*6/uL (4.60-5.80); Red Cell Distribution Width 13.8 % (11.0-16.0); SCAN SMEAR FLAG 1; White Blood Count 9.1 X10*3/uL (4.8-10.8)
[2021-02-26 10:39] LABS: Alanine Aminotransferase 143 U/L (0-40); Albumin Level 3.1 g/dL (3.5-5.0); Alkaline Phosphatase 66 U/L (39-117); Anion Gap 12 (12-20); Aspartate Amino Transferase 46 U/L (5-37); Bilirubin Direct 1.2 mg/dL (0.0-0.5); Bilirubin Total 1.8 mg/dL (0.0-1.0); Blood Urea Nitrogen 13 mg/dL (9-16); Calcium 7.9 mg/dL (8.4-10.2); Carbon Dioxide 22 mmol/L (22-29); Chloride 99 mmol/L (96-108); Creatinine Clr Calc Pharmacy 128.1; Estimated Glomerular Filt Rate > 60; Glucose Random 138 mg/dL (60-115); Potassium 3.4 mmol/L (3.3-5.1); Sodium 130 mmol/L (135-145); Total Protein 5.7 g/dL (6.5-8.0)
[2021-02-26 10:44] LABS: SLIDE REVIEW VERIFIED
--- NOTE | 2021-02-26 15:20 | P.PNIM_ITS ---
Subjective Subjective Date of Service: 02/26/21 Interval History: Patient complaining of persistent diffuse abdominal pain but better since yesterday, requiring pain medication every 3 hours, no fevers no chills, had loose bowel movement. ROS General no headache, no dizziness, no fever chills. CVS no chest pain, no palpitation. Respiratory no cough, no sob. Gastrointestinal nausea, dyspepsia, abdominal pain Physical Exam Vital Signs: Vital Signs: Last Vital Signs Temp 99.7 F 02/26/21 15:04 Pulse 110 H 02/26/21 15:04 Resp 18 02/26/21 15:04 BP 162/91 H 02/26/21 15:04 Pulse Ox 92 02/26/21 15:04 Body Mass Index 25.8 General in mild distress due to pain. Neck no JVD. CVS regular rate rhythm, Respiratory lungs clear to auscultation, no respiratory distress, no wheeze, no rhonchi. Gastrointestinal abdomen diffuse tenderness to palpation, bowel sounds audible, no guarding , no rigidity. Extremities no edema. Neuro nonfocal , speech clear. Skin no rash Objective Data Current Medications Generic Name Dose Route Start Last Admin Trade Name Freq PRN Reason Stop Dose Admin Al Hydroxide/Mg Hydroxide 30 ml 02/26/21 08:52 02/26/21 09:28 Magnesium Hydrox/Alum Hydrox 30 Ml Oral.Susp PO 30 ml Q6H PRN Administration Dyspepsia Dextrose 25 gm 02/25/21 03:18 Dextrose 50 % 25 Gm/50 Ml Vial IVPUSH Q2H PRN hypoglycemia Enoxaparin Sodium 40 mg 02/24/21 18:00 02/25/21 18:08 Enoxaparin Sodium 40 Mg/0.4 Ml Syringe SUBCUT 40 mg Q24H [facility] Administration Hydromorphone HCl 1 mg 02/25/21 07:56 02/26/21 14:13 Hydromorphone Hcl 0.5 Mg/0.5 Ml Syringe IVPUSH 1 mg Q3H PRN Administration Pain, Severe (Pain Scale 7-10) Hydromorphone HCl 0.5 mg 02/25/21 10:42 Hydromorphone Hcl 0.5 Mg/0.5 Ml Syringe IVPUSH Q4H PRN Pain, Moderate (Pain Scale 4-6 Piperacillin Sod/Tazobactam 50 mls @ 100 mls/hr 02/25/21 09:00 02/26/21 14:50 Sod 3.375 gm/ Sodium Chloride IV Infused Q6H [facility] Infusion Lactated Ringer's 1,000 mls @ 150 mls/hr 02/25/21 10:45 02/26/21 14:13 Lr IVCONT 150 mls/hr .Q6H40M [facility] Administration Medication 1 each 02/25/21 08:53 No Benzodiazepines MISCELLANE DAILY [facility] Ondansetron HCl 4 mg 02/24/21 10:51 02/26/21 10:52 Ondansetron Hcl 4 Mg/2 Ml Vial IVPUSH 4 mg Q8H PRN Administration Nausea and Vomiting Pentoxifylline 400 mg 02/24/21 21:00 02/26/21 14:13 Pentoxifylline Er 400 Mg Tablet.Er PO 400 mg TID [facility] Administration Pharmacy Consult 1 each 02/25/21 03:18 Consult Rx Vancomycin Dosing MISCELLANE DAILY PRN Consult order Phenobarbital 45 mg 02/25/21 21:00 02/26/21 08:09 Phenobarbital 15 Mg Tablet PO 02/27/21 09:01 45 mg BID [facility] Administration Protocol Phenobarbital 30 mg 02/27/21 21:00 Phenobarbital 30 Mg Tablet PO 03/01/21 09:01 BID [facility] Protocol Phenobarbital 15 mg 03/02/21 09:00 Phenobarbital 15 Mg Tablet PO 03/03/21 09:01 DAILY [facility] Protocol Sodium Chloride 3 ml 02/24/21 16:00 02/26/21 08:10 0.9 % Sodium Chloride Flush 3 Ml Syringe IVFLUSH 3 ml QSHIFT [facility] Administration Labs CBC & Chem 7: 02/26/21 09:38 02/26/21 09:38 Labs: Laboratory Results - last 24 hr 02/26/21 02/26/21 09:38 09:38 WBC 9.1 RBC 3.71 L Hgb 11.7 L Hct 34.3 L MCV 92.5 MCH 31.5 MCHC 34.1 RDW 13.8 Plt Count 132 L MPV 9.5 Immature Gran % (Auto) 1.1 H Neut % (Auto) 91.3 H Lymph % (Auto) 5.5 L [place] % (Auto) 2.1 Eos % (Auto) 0.0 Baso % (Auto) 0.0 Lymph # (Auto) 0.5 L [place] # (Auto) 0.2 Eos # (Auto) 0.0 Baso # (Auto) 0.0 Abs Immat Gran (auto) 0.10 H Absolute Neuts (auto) 8.3 Absolute Nucleated RBC 0.000 Nucleated RBC % (auto) 0.0 Smear Tech's Comments VERIFIED Sodium 130 L Potassium 3.4 Chloride 99 Carbon Dioxide 22 Anion Gap 12 BUN 13 Creatinine 0.72 Estim Creat Clear Calc 128.1 Estimated GFR > 60 Random Glucose 138 H Calcium 7.9 L Total Bilirubin 1.8 H Direct Bilirubin 1.2 H AST 46 H D ALT 143 H Alkaline Phosphatase 66 Total Protein 5.7 L Albumin 3.1 L Microbiology Microbiology Results: Microbiology 02/24/21 05:09 Blood Culture - Preliminary Blood - Venous No growth after 48 hours. 02/24/21 04:52 Blood Culture - Preliminary Blood - Venous No growth after 48 hours. Quality Stroke Does the patient have a stroke diagnosis?: No VTE Prior VTE?: No VTE Risk Level:: Medical - moderate - high VTE Device Contraindication: N/A - Device Ordered VTE Drug Contraindication: N/A - Med Ordered Assessment and Plan (1) Acute pancreatitis: Status: Acute (2) Abnormal LFTs: Status: Acute (3) Sepsis: Status: Acute (4) Cholelithiasis: Status: Acute Assessment and Plan: 50 yo M with no significant PMH who presents to the hospital with sudden on set abdominal pain with associated nausea and vomiting. He does have a history of daily drinking 2-3 drinks. He will be admitted for acute pancreaitits. 1. Acute pancreatitis Likely secondary to gallstone, likely passed a stone, also some component of alcohol Persistent abdominal pain, LFTs trending down, continue clear liquid diet, IV fluid and IV Dilaudid for pain control, continue trental Follow LFTs, CBC, lipase, BMP and calcium closely will discuss with GI regarding further care Elevated blood pressure and pulse likely due to alcohol withdrawal patient not on any home medications for hypertension, will give low-dose beta-blockers and follow clinical course 2. Leukocytosis wbc normalized, was likely reactive, continue empiric IV Zosyn 3. Elevated LFTs trending down likely due to gallstones and passed a stone, trending down. 4. Lactic acidosis improved with fluids 5. Alcohol use Continue phenobarb Full Code DVT pptx, Lovenox
[2021-02-26 17:16] LABS: Transglutaminase Ab IgG 10 U/mL; Transglutaminase IgA 1 U/mL
[2021-02-26] MEDS: Enoxaparin Sodium 40 MG/0.4 ML SYRINGE SUBCUT (17:19)
[2021-02-26 20:01] LABS: Vancomycin Trough < 3.0 mcg/mL (10.0-20.0)
[2021-02-26] MEDS: Famotidine/PF 20 MG/2 ML VIAL IVPUSH (21:27)
[2021-02-26] MEDS: Metoprolol Tartrate 25 MG TABLET PO (22:04)
[2021-02-26] MEDS: diphenhydrAMINE HCL 25 MG TABLET PO (22:05)
[2021-02-27] VITALS (9 sets, daily range): BP systolic 143–179; BP diastolic 90–98; PULSE 97–109; RESP 18–20; TEMP 36.6–37.4; O2SAT 92–96
[2021-02-27] MEDS: HYDROmorphone HCl 0.5 MG/0.5 ML SYRINGE 1 MG IVPUSH ×8 (01:04→22:22)
[2021-02-27] MEDS: Piperacillin Sodium/Tazobactam 3.375 GM in 0.9 % Sodium Chloride 50 ML IV ×4 (02:58→20:53)
[2021-02-27 07:14] LABS: Alanine Aminotransferase 98 U/L (0-40); Albumin Level 2.8 g/dL (3.5-5.0); Alkaline Phosphatase 62 U/L (39-117); Anion Gap 10 (12-20); Aspartate Amino Transferase 28 U/L (5-37); Bilirubin Direct 0.8 mg/dL (0.0-0.5); Bilirubin Total 1.3 mg/dL (0.0-1.0); Blood Urea Nitrogen 13 mg/dL (9-16); Calcium 7.6 mg/dL (8.4-10.2); Carbon Dioxide 24 mmol/L (22-29); Chloride 97 mmol/L (96-108); Creatinine Clr Calc Pharmacy 135.6; Estimated Glomerular Filt Rate > 60; Glucose Random 120 mg/dL (60-115); Lipase 76 U/L (8-78); Magnesium 1.9 mg/dL (1.6-2.6); Potassium 3.4 mmol/L (3.3-5.1); Sodium 128 mmol/L (135-145); Total Protein 5.1 g/dL (6.5-8.0)
[2021-02-27] MEDS: Lactated Ringers 1,000 ML 150 ML IVCONT (07:29)
--- NOTE | 2021-02-27 08:11 | P.PNIM_ITS ---
Subjective Subjective Date of Service: 02/27/21 Interval History: Patient says his abdominal pain is slightly better , denies any nausea but has lot of bloating. Drinking fluid also today Review of Systems Patient denies any chest pain or shortness of breath or cough or phlegm or nausea or vomiting or any urinary complaints. No fever overnight Physical Exam Vital Signs: Vital Signs: Last Vital Signs Temp 99.4 F 02/27/21 07:06 Pulse 105 H 02/27/21 07:06 Resp 20 02/27/21 07:06 BP 162/90 H 02/27/21 07:06 Pulse Ox 95 02/27/21 07:06 Body Mass Index 25.8 General : seems sitting talking to his family Neck no JVD. CVS :rrr,s1s2 heard. Respiratory : clear to auscultation, no respiratory distress, no wheeze, no rhonchi. Gastrointestinal :diffuse abd pains seems similar yesterday , bowel sounds audible, no guarding , no rigidity. Extremities no edema. Neuro nonfocal , speech clear. Skin no rash Objective Data Current Medications Generic Name Dose Route Start Last Admin Trade Name Freq PRN Reason Stop Dose Admin Al Hydroxide/Mg Hydroxide 30 ml 02/26/21 08:52 02/26/21 16:00 Magnesium Hydrox/Alum Hydrox 30 Ml Oral.Susp PO 30 ml Q6H PRN Administration Dyspepsia Dextrose 25 gm 02/25/21 03:18 Dextrose 50 % 25 Gm/50 Ml Vial IVPUSH Q2H PRN hypoglycemia Diphenhydramine HCl 25 mg 02/26/21 21:08 02/26/21 22:05 Diphenhydramine Hcl 25 Mg Tablet PO 25 mg DAILY PRN Administration Insomnia Enoxaparin Sodium 40 mg 02/24/21 18:00 02/26/21 17:19 Enoxaparin Sodium 40 Mg/0.4 Ml Syringe SUBCUT 40 mg Q24H [facility]IG[facility] Administration Famotidine 20 mg 02/26/21 21:00 02/26/21 21:27 Famotidine/Pf 20 Mg/2 Ml Vial IVPUSH 20 mg BID [facility] Administration Hydromorphone HCl 1 mg 02/25/21 07:56 02/27/21 07:23 Hydromorphone Hcl 0.5 Mg/0.5 Ml Syringe IVPUSH 1 mg Q3H PRN Administration Pain, Severe (Pain Scale 7-10) Hydromorphone HCl 0.5 mg 02/25/21 10:42 Hydromorphone Hcl 0.5 Mg/0.5 Ml Syringe IVPUSH Q4H PRN Pain, Moderate (Pain Scale 4-6 Piperacillin Sod/Tazobactam 50 mls @ 100 mls/hr 02/25/21 09:00 02/27/21 04:14 Sod 3.375 gm/ Sodium Chloride IV Infused Q6H [facility] Infusion Sodium Chloride 1,000 mls @ 125 mls/hr 02/27/21 08:15 Ns IVCONT .Q8H [facility] Medication 1 each 02/25/21 08:53 No Benzodiazepines MISCELLANE DAILY [facility] Metoprolol Tartrate 25 mg 02/26/21 21:00 02/26/21 22:04 Metoprolol Tartrate 25 Mg Tablet PO 25 mg BID [facility] Administration Protocol Ondansetron HCl 4 mg 02/24/21 10:51 02/26/21 21:26 Ondansetron Hcl 4 Mg/2 Ml Vial IVPUSH 4 mg Q8H PRN Administration Nausea and Vomiting Pentoxifylline 400 mg 02/24/21 21:00 02/26/21 22:03 Pentoxifylline Er 400 Mg Tablet.Er PO 400 mg TID [facility] Administration Pharmacy Consult 1 each 02/25/21 03:18 Consult Rx Vancomycin Dosing MISCELLANE DAILY PRN Consult order Phenobarbital 45 mg 02/25/21 21:00 02/26/21 22:03 Phenobarbital 15 Mg Tablet PO 02/27/21 09:01 45 mg BID [facility] Administration Protocol Phenobarbital 30 mg 02/27/21 21:00 Phenobarbital 30 Mg Tablet PO 03/01/21 09:01 BID [facility] Protocol Phenobarbital 15 mg 03/02/21 09:00 Phenobarbital 15 Mg Tablet PO 03/03/21 09:01 DAILY [facility] Protocol Sodium Chloride 3 ml 02/24/21 16:00 02/26/21 23:36 0.9 % Sodium Chloride Flush 3 Ml Syringe IVFLUSH Not Given QSHIFT [facility] Labs CBC & Chem 7: 02/26/21 09:38 02/27/21 14:24 Labs: Laboratory Results - last 24 hr 02/24/21 02/26/21 02/26/21 21:07 09:38 09:38 WBC 9.1 RBC 3.71 L Hgb 11.7 L Hct 34.3 L MCV 92.5 MCH 31.5 MCHC 34.1 RDW 13.8 Plt Count 132 L MPV 9.5 Immature Gran % (Auto) 1.1 H Neut % (Auto) 91.3 H Lymph % (Auto) 5.5 L [place] % (Auto) 2.1 Eos % (Auto) 0.0 Baso % (Auto) 0.0 Lymph # (Auto) 0.5 L [place] # (Auto) 0.2 Eos # (Auto) 0.0 Baso # (Auto) 0.0 Abs Immat Gran (auto) 0.10 H Absolute Neuts (auto) 8.3 Absolute Nucleated RBC 0.000 Nucleated RBC % (auto) 0.0 Smear Tech's Comments VERIFIED Sodium 130 L Potassium 3.4 Chloride 99 Carbon Dioxide 22 Anion Gap 12 BUN 13 Creatinine 0.72 Estim Creat Clear Calc 128.1 Estimated GFR > 60 Random Glucose 138 H Calcium 7.9 L Magnesium Total Bilirubin 1.8 H Direct Bilirubin 1.2 H AST 46 H D ALT 143 H Alkaline Phosphatase 66 Total Protein 5.7 L Albumin 3.1 L Lipase Vancomycin Trough Tiss Transglutamin IgG 10 H Tiss Transglutamin IgA 1 02/26/21 02/27/21 18:57 05:17 WBC RBC Hgb Hct MCV MCH MCHC RDW Plt Count MPV Immature Gran % (Auto) Neut % (Auto) Lymph % (Auto) [place] % (Auto) Eos % (Auto) Baso % (Auto) Lymph # (Auto) [place] # (Auto) Eos # (Auto) Baso # (Auto) Abs Immat Gran (auto) Absolute Neuts (auto) Absolute Nucleated RBC Nucleated RBC % (auto) Smear Tech's Comments Sodium 128 L Potassium 3.4 Chloride 97 Carbon Dioxide 24 Anion Gap 10 L BUN 13 Creatinine 0.68 Estim Creat Clear Calc 135.6 Estimated GFR > 60 Random Glucose 120 H Calcium 7.6 L Magnesium 1.9 Total Bilirubin 1.3 H Direct Bilirubin 0.8 H AST 28 ALT 98 H Alkaline Phosphatase 62 Total Protein 5.1 L Albumin 2.8 L Lipase 76 Vancomycin Trough < 3.0 L Tiss Transglutamin IgG Tiss Transglutamin IgA Microbiology Microbiology Results: Microbiology 02/24/21 05:09 Blood Culture - Preliminary Blood - Venous No growth after 48 hours. 07/19/21 04:52 Blood Culture - Preliminary Blood - Venous No growth after 48 hours. Quality Stroke Does the patient have a stroke diagnosis?: No VTE Prior VTE?: No VTE Risk Level:: Medical - moderate - high VTE Device Contraindication: N/A - Device Ordered VTE Drug Contraindication: N/A - Med Ordered Assessment and Plan (1) Abnormal LFTs: Status: Acute (2) Acute pancreatitis: Status: Acute Assessment and Plan: 50 yo M with no significant PMH who presents to the hospital with sudden on set abdominal pain with associated nausea and vomiting. He does have a history of daily drinking 2-3 drinks. He will be admitted for acute pancreaitits. 1. Acute pancreatitis: Likely secondary to gallstone, likely passed a stone, also some component of alcohol Persistent abdominal pain, LFTs trending down, continue clear liquid diet, IV fluid and IV Dilaudid for pain control, continue trental Follow LFTs, CBC, lipase, BMP and calcium closely will discuss with GI regarding further care Elevated blood pressure and pulse likely due to alcohol withdrawal patient n ot on any home medications for hypertension, will give low-dose beta-blockers and follow clinical course Patient still has bloating-we added some PPI and also given dose of simethicone. Gu fu-discussed with GI continue to monitor since patient abdominal pain is somewhat better and is tolerating some p.o. water if does not improve by next 24 hours we will consider another abdominal imaging. 2. Leukocytosis wbc normalized, was likely reactive, continue empiric IV Zosyn urine culture <10k cfu, blood culture neg@48hrs 3. Elevated LFTs trending down likely due to gallstones and passed a stone, trending down. 4. Lactic acidosis improved with fluids 5. Alcohol use Continue phenobarb. 6.hyponatremia : seems multifcatorial -alcochol use , poor oral intake will change fluids to ns , repeated sodium seems improving 129 range
[2021-02-27] MEDS: Famotidine/PF 20 MG/2 ML VIAL IVPUSH ×2 (08:23→20:56)
[2021-02-27] MEDS: PHENobarbitaL 15 MG TABLET 45 MG PO (08:23)
[2021-02-27] MEDS: Pentoxifylline ER 400 MG TABLET.ER PO ×3 (08:24→21:51)
[2021-02-27] MEDS: Metoprolol Tartrate 25 MG TABLET PO ×2 (08:24→21:51)
[2021-02-27] MEDS: 0.9 % Sodium Chloride 1,000 ML 125 ML IVCONT ×2 (08:24→17:41)
[2021-02-27 08:47] LABS: Osmolality, Serum 270 mosm/kg (281-305)
[2021-02-27 14:08] LABS: Potassium Urine Random 25.9 mmol/L
[2021-02-27 14:09] LABS: Osmolality Urine 666 mosm/kg (373-1093)
[2021-02-27 15:10] LABS: Sodium 129 mmol/L (135-145)
[2021-02-27] MEDS: Enoxaparin Sodium 40 MG/0.4 ML SYRINGE SUBCUT (17:40)
--- NOTE | 2021-02-27 18:37 | PC.NURSE ---
Patient reporting 9 out 10 pain in his abdomen throughout the day, requiring dilaudid q 3 as ordered. Hospitalist aware.
[2021-02-27] MEDS: PHENobarbitaL 30 MG TABLET PO (21:52)
[2021-02-28] VITALS: BP 168/118; PULSE 84; RESP 16; TEMP 37.3; O2SAT 94
[2021-02-28] MEDS: HYDROmorphone HCl 0.5 MG/0.5 ML SYRINGE 1 MG IVPUSH ×5 (01:41→15:52)
[2021-02-28] MEDS: 0.9 % Sodium Chloride 1,000 ML 125 ML IVCONT ×2 (01:44→14:02)
[2021-02-28] MEDS: Piperacillin Sodium/Tazobactam 3.375 GM in 0.9 % Sodium Chloride 50 ML IV ×3 (03:32→16:04)
[2021-02-28] MEDS: Simethicone 80 MG TAB.CHEW PO (03:37)
[2021-02-28 03:50] VITALS: BP 172/90; PULSE 109; RESP 18; TEMP 36.6; O2SAT 96
[2021-02-28 07:00] LABS: Anion Gap 14 (12-20); Blood Urea Nitrogen 14 mg/dL (9-16); Calcium 7.8 mg/dL (8.4-10.2); Carbon Dioxide 21 mmol/L (22-29); Chloride 97 mmol/L (96-108); Creatinine Clr Calc Pharmacy 135.6; Estimated Glomerular Filt Rate > 60; Glucose Random 126 mg/dL (60-115); Potassium 3.3 mmol/L (3.3-5.1); Sodium 129 mmol/L (135-145)
[2021-02-28 07:49] VITALS: BP 165/97; PULSE 107; RESP 18; TEMP 37.1; O2SAT 99
[2021-02-28] MEDS: 0.9 % Sodium Chloride Flush 3 ML SYRINGE IVFLUSH (08:12)
[2021-02-28 08:13] VITALS: BP 165/97; PULSE 107
[2021-02-28] MEDS: Famotidine/PF 20 MG/2 ML VIAL IVPUSH (08:13)
[2021-02-28] MEDS: Metoprolol Tartrate 25 MG TABLET PO (08:13)
[2021-02-28] MEDS: Pentoxifylline ER 400 MG TABLET.ER PO ×2 (08:13→16:04)
[2021-02-28] MEDS: iohexoL 350 MG/ML 100 ML INFUS..BTL IV (09:29)
--- NOTE | 2021-02-28 10:02 | PM.PNGS ---
Progress Note: A&P Assessment and plan (1) Acute pancreatitis: Status: Acute Assessment and Plan: 50-year-old male patient with acute pancreatitis possibly due to gallstones or alcohol. Patient continues to have abdominal pain without relief. Repeat CT of the abdomen and pelvis was reviewed this morning with Dr. Low. 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 No air or abscess is appreciated however there is worsening when compared to the prior CT of 02/24/2021. There is a decreased left pleural effusion and pancreatic ascites over the liver and throughout the abdomen. I am concerned of the worsening of his pancreatitis by CT with the current supportive care. Patient is at risk of developing pancreatic abscess or bleeding and would be in favor of transfer to a pancreatic service. I discussed this with the patient and family, as well as Dr. Wu. Continue pain management. Fall Risk Details Current Medications: Current Medications Generic Name Dose Route Start Last Admin Trade Name Freq PRN Reason Stop Dose Admin Al Hydroxide/Mg Hydroxide 30 ml 02/26/21 08:52 02/26/21 16:00 Magnesium Hydrox/Alum Hydrox 30 Ml Oral.Susp PO 30 ml Q6H PRN Administration Dyspepsia Dextrose 25 gm 02/25/21 03:18 Dextrose 50 % 25 Gm/50 Ml Vial IVPUSH Q2H PRN hypoglycemia Diphenhydramine HCl 25 mg 02/26/21 21:08 02/26/21 22:05 Diphenhydramine Hcl 25 Mg Tablet PO 25 mg DAILY PRN Administration Insomnia Enoxaparin Sodium 40 mg 02/24/21 18:00 02/27/21 17:40 Enoxaparin Sodium 40 Mg/0.4 Ml Syringe SUBCUT 40 mg Q24H [facility] Administration Famotidine 20 mg 02/26/21 21:00 02/28/21 08:13 Famotidine/Pf 20 Mg/2 Ml Vial IVPUSH 20 mg BID [facility] Administration Hydromorphone HCl 1 mg 02/25/21 07:56 02/28/21 08:13 Hydromorphone Hcl 0.5 Mg/0.5 Ml Syringe IVPUSH 1 mg Q3H PRN Administration Pain, Severe (Pain Scale 7-10) Hydromorphone HCl 0.5 mg 02/28/21 09:25 Hydromorphone Hcl 0.5 Mg/0.5 Ml Syringe IVPUSH Q3H PRN Pain, Moderate (Pain Scale 4-6 Piperacillin Sod/Tazobactam 50 mls @ 100 mls/hr 02/25/21 09:00 02/28/21 09:42 Sod 3.375 gm/ Sodium Chloride IV Infused Q6H [facility] Infusion Sodium Chloride 1,000 mls @ 125 mls/hr 02/27/21 08:15 02/28/21 08:14 Ns IVCONT Not Given .Q8H [facility] Medication 1 each 02/25/21 08:53 No Benzodiazepines MISCELLANE DAILY [facility] Metoprolol Tartrate 25 mg 02/26/21 21:00 02/28/21 08:13 Metoprolol Tartrate 25 Mg Tablet PO 25 mg BID [facility] Administration Protocol Ondansetron HCl 4 mg 02/24/21 10:51 02/26/21 21:26 Ondansetron Hcl 4 Mg/2 Ml Vial IVPUSH 4 mg Q8H PRN Administration Nausea and Vomiting Pentoxifylline 400 mg 02/24/21 21:00 02/28/21 08:13 Pentoxifylline Er 400 Mg Tablet.Er PO 400 mg TID [facility] Administration Pharmacy Consult 1 each 02/25/21 03:18 Consult Rx Vancomycin Dosing MISCELLANE DAILY PRN Consult order Phenobarbital 30 mg 02/27/21 21:00 02/27/21 21:52 Phenobarbital 30 Mg Tablet PO 03/01/21 09:01 30 mg BID [facility] Administration Protocol Phenobarbital 15 mg 03/02/21 09:00 Phenobarbital 15 Mg Tablet PO 03/03/21 09:01 DAILY [facility] Protocol Simethicone 80 mg 02/27/21 20:22 02/28/21 03:37 Simethicone 80 Mg Tab.Chew PO 80 mg QIDWMHS PRN Administration bloating Simethicone 40 mg 02/28/21 08:33 Simethicone 40 Mg/0.6 Ml 30 Ml Drops.Susp PO QID PRN GI Upset Sodium Chloride 3 ml 02/24/21 16:00 02/28/21 08:12 0.9 % Sodium Chloride Flush 3 Ml Syringe IVFLUSH 3 ml QSHIFT [facility] Administration Time Spent With Patient Time: Total time spent is greater than 50% in coordination of care (as documented) at patient's floor/unit and/or counseling patient: Time with patient: Greater than 35 minutes Subjective Subjective Date of Service: 02/28/21 Interval history: Patient is reporting persistent abdominal pain throughout the abdomen but most significantly in the epigastric region. Pain is constant without relief. He reports coughing up some phlegm, denies vomiting. Bowels are moving intermittently. Physical Exam Vital Signs: Vital Signs: Last Vital Signs Temp 98.8 F 02/28/21 07:49 Pulse 107 H 02/28/21 08:13 Resp 18 02/28/21 07:49 BP 165/97 H 02/28/21 08:13 Pulse Ox 99 02/28/21 07:49 Body Mass Index 25.8 Const: General: ill appearing Nutritional Appearance: well nourished Orientation/consciousness: patient oriented x3 Limitations: no limitations Eyes: Sclerae: sclerae normal EOM: EOMs intact bilaterally Resp: Other: Shallow breathing, no respiratory distress Cardio: Other: Tachycardia GI: Other: Distended diffusely, decreased bowel sounds, tender especially in the epigastrium, tympanitic Skin: Other: Warm and dry Neuro: General: patient oriented x3 Procedures Date of Service Date of Service: 02/28/21 Quality Stroke Does the patient have a stroke diagnosis?: No VTE Prior VTE?: No VTE Risk Level:: Medical - moderate - high VTE Device Contraindication: N/A - Device Ordered VTE Drug Contraindication: N/A - Med Ordered
[2021-02-28] MEDS: PHENobarbitaL 30 MG TABLET PO (10:26)
[2021-02-28] MEDS: HYDROmorphone HCl 0.5 MG/0.5 ML SYRINGE IVPUSH ×3 (10:26→17:33)
[2021-02-28 11:41] VITALS: BP 174/99; PULSE 104; RESP 18; TEMP 37.2; O2SAT 98
--- NOTE | 2021-02-28 13:56 | MHC.CM.PN ---
Addendum entered by Gabby Edwards 02/28/21 14:51: PT BEING TRANSFERRED TO [facility] Original Note: CM RECEIVED A MESSAGE THAT PT AND HIS S/O WISHED TO SPEAK. CM WENT TO ROOM AND WAS INTRODUCED TO PTS GF AND [employer] WHO WAS ALSO PRESENT. PTS GF STATED CONCERN THAT SHE HAD NOT YET RECEIVED A TREATMENT PLAN EXPLAINING THAT SHE WANTED BOTH THE PLAN OF CARE AND PAIN MANAGEMENT IN WRITING. CM EXPLAINED THIS WAS NOT A COMMON PRACTICE IN AN ACUTE CARE H[facility] THE CARE PLAN CHANGES FREQUENTLY, ESPECIALLY IN CASES SUCH THIS WHERE THERE WERE STILL PENDING CONSULTS. THEY THEN REQUESTED PRINTED RECORDS. CM DIRECTED THEM TO MEDICAL RECORDS. THEY THEN INDICATED THEY WOULD BE REQUEST A CASE CONFERENCE.
--- NOTE | 2021-02-28 14:23 | P.DS_ITS ---
DS: Providers Provider Date of Service: 02/28/21 Date of admission: 02/24/21 10:51 Primary care physician: None Physician Consults: 02/24/21 10:56 Consult to Gastroenterology Routine Consulting Provider: Thuan Flores Reason for consultation: pancreatitis Has provider been notified: Yes Consult to General Surgery Routine Consulting Provider: Frida Harman Reason for consultation: Pancreatitis, ? early necrosis on CT scan 02/28/21 12:52 Consult to Infectious Diseases Routine Consulting Provider: Deb Watkins Reason for consultation: leucocytiosis , ? pancreatic necrosis Has provider been notified: No DS: Diagnosis Discharge Diagnosis (1) Acute pancreatitis: Status: Acute DS: Medications Discharge Medications Home Medications: Home Medications Medication Instructions Recorded Confirmed No Known Home Meds 02/24/21 02/24/21 Previous Rx's Medication Instructions Recorded hydromorphone 0.5 mg IVPUSH Q3H PRN #0.5 ml 02/28/21 hydromorphone 1 mg IVPUSH Q3H PRN #0.5 ml 02/28/21 phenobarbital 15 mg PO DAILY #1 tab 02/28/21 phenobarbital 30 mg PO BID #1 tab 02/28/21 DS: Summary Hospital Course Hospital Course: 50-year-old male with no significant past medical history who presents to the hospital complaints of severe abdominal pain with associated nausea and vomiting of about 1 day duration. Patient reports that 2 evenings ago he had a meal consisting of seafood (which she reports some intolerance to) and he woke up the next morning with nausea and vomiting. He reports that this progressed to severe abdominal pain which was sudden in onset and became so unbearable that he came to the emergency room. Patient endorses daily alcohol use - reports drinking 2 cups of Bernie cream. He reports that he has been doing this for quite a while. Denies more significant use on the weekends. He also endorses a family history of gallstones in his mother and brother. He does endorse [id number] ibuprofen and Tylenol use generally once or twice a week. Upon arrival to the emergency room patient was noted to have significantly elevated LFTs - AST 388, ALT 619, total bilirubin 2.9. He was also noted to have an lipase level of 1049. CT scan of the abdomen showed extensive bibiana pancreatic inflammation consistent with pancreatitis. There were regions of mild hypoattenuation in the pancreatic head and body which could represent developing necrosis. Out of concern for this possible developing necrosis - a requested that the emergency room physician discussed the case with General surgery. Hospital course: Patient was admitted due to acute pancreatitis, elevated LFTs-found to have alcohol versus gallstone pancreatitis, initial CT scan shows extensive peripancreatic inflammation consistent with pancreatitis and mild hypo attenuation in the pancreatic head and body could represent necrosis, also had gallstones: Patient was started on bowel rest and iv fluids LR and pain control with dilaudid as well as surgery and GI saw the patient initially recommended to continue above management for pancreatitis-but patient is pain is similar, also getting more bloated: So CT scan repeated which shows still pancreatitis related edema and /or early signs of pancreatic necrosis. Patient will be continued on bowel rest,switched to IV fluid NS due to hyponatremia, antibiotic zosyn, pain management with Dilaudid, simethicone for bloating-seen by surgery today and recommended possible transplant due to possible of earlier changes of necrosis-discussed the case in [facility] with Dr. ruelas general surgery who accepted the patient and patient will be transferred to [facility] today. Elevated liver function test: Seems to be improving-probably multifactorial alcohol use, question of may have passed a gallstone. Continue to monitor LFTs in [facility]. Alcohol use hare: Does not seem to be any withdrawal symptoms currently but precautionary put on phenobarb for now. Monitor with CIWA scale in [facility]. Hyponatremia: Seems multifactorial probably related to alcohol use/poor oral intake: Sodium is in 129 range, continue IV fluid NS : Monitor electrolytes and renal function closely in [facility]. Elevated blood pressure: Patient does not use any blood pressure medication at home, probably elevated secondary to anxiety and pain: We added metoprolol, continue to monitor blood pressure. in addition patient had leukocytosis-was started on IV antibiotics-zosyn, blood culture and urine culture was sent. Blood culture negative at 48 hours, urine culture less than 10,000 cfu/ml. Leucocytosis seem to be resolved , no fevers d/w surgery and GI-recommended to continue IV Zosyn for now due to possible of pancreatic necrosis. Please continue to monitor CBC, BMP, LFTs daily in [facility]. Above management discussed with Dr. Ruelas from [facility] surgery in detail and patient was accepted to [facility]. Above management discussed with the patient and her family in detail length they understand and in agreement with the above plan, time spent 50 minutes and 50% time spent on counseling. Significant findings: As above. Procedures performed: None. Treatment and response: As above. Complications: None. Time Spent with Patient Time attestation: Total time spent providing and/or coordinating discharge services: Discharge coordination time: Greater than 30 minutes Quality: Stroke Does the patient have a stroke diagnosis?: No Physical Exam Vital Signs: Vital Signs: Last Vital Signs Temp 98.9 F 02/28/21 11:41 Pulse 104 H 02/28/21 11:41 Resp 18 02/28/21 11:41 BP 174/99 H 02/28/21 11:41 Pulse Ox 98 02/28/21 11:41 Body Mass Index 25.8 Physical exam: General : seems sitting talking to his family ,Neck is supple, no JVD. CVS :rrr,s1s2 heard. Respiratory : clear to auscultation, no respiratory distress, no wheeze, no rhonchi. Gastrointestinal :diffuse abd pains seems similar yesterday , bowel sounds audible, no guarding , no rigidity. Patient said he passed BM. Extremities : No cyanosis, no edema. Neuro :nonfocal , strength and sensation intact. Skin no rash DS: Data Data Completed and Pending Labs on day of discharge: Laboratory Results - last 24 hr 02/27/21 02/28/21 14:24 05:21 Sodium 129 L 129 L Potassium 3.3 Chloride 97 Carbon Dioxide 21 L Anion Gap 14 BUN 14 Creatinine 0.68 Estim Creat Clear Calc 135.6 Estimated GFR > 60 Random Glucose 126 H Calcium 7.8 L Preliminary micro results at discharge 02/24/21 05:09 Blood Culture - Preliminary Blood - Venous No growth after 48 hours. 02/24/21 04:52 Blood Culture - Preliminary Blood - Venous No growth after 48 hours. Discharge Plan Discharge Patient Disposition: Xfer Acute Care Hospital Discharge Diagnosis: Acute pancreatitis, hyponatremia, leukocytosis, elevated LFTs, alcohol use Referrals: Physician,None [Primary Care Provider] - 1 Week Discharge Medications: New pentoxifylline 400 mg Tablet Extended Release 400 mg PO TID Qty: 1 RF: 0 piperacillin-tazobactam 3.375 gram Recon Soln 3.375 g IV Q6H Qty: 1 RF: 0 diphenhydramine HCl [Allergy Relief(diphenhydramin)] 25 mg Tablet 25 mg PO DAILY PRN (Reason: Insomnia) Qty: 1 RF: 0 metoprolol tartrate 25 mg Tablet 50 mg PO BID Qty: 2 RF: 0 hydromorphone 0.5 mg/0.5 mL Syringe 1 mg IVPUSH Q3H PRN (Reason: Pain, Severe (Pain Scale 7-10)) Qty: 0.5 RF: 0 hydromorphone 0.5 mg/0.5 mL Syringe 0.5 mg IVPUSH Q3H PRN (Reason: Pain, Moderate (Pain Scale 4-6) Qty: 0.5 RF: 0 phenobarbital 15 mg Tablet 15 mg PO DAILY Qty: 1 RF: 0 phenobarbital 30 mg Tablet 30 mg PO BID Qty: 1 RF: 0 famotidine (PF) 20 mg/2 mL Solution 20 mg IVPUSH BID Qty: 2 RF: 0 simethicone [[place] Gas Relief] 40 mg/0.6 mL Drops,Suspension 40 mg PO QID PRN (Reason: Gi Upset) Qty: 15 RF: 0 ondansetron HCl (PF) 4 mg/2 mL Solution 4 mg IVPUSH Q8H PRN (Reason: Nausea And Vomiting) Qty: 2 RF: 0 Discharge Orders: Discharge Order (Routine); Ordered 02/28/21 Ordered By: Ranjit Wu Diet: advance to usual diet and other Activity on Discharge: As tolerated Stand Alone Forms: Patient Portal Discharge page Care Plan Goals: Patient was admitted due to acute pancreatitis, elevated LFTs-found to have alcohol versus gallstone pancreatitis: Patient was started on bowel rest and fluids and pain control as well as surgery and GI saw the patient initially recommended to continue above management for pancreatitis-but patient is pain is similar, also getting more bloated: So CT scan repeated which shows still pancreatitis related edema and /or early signs of pancreatic necrosis. Patient will be continued on bowel rest, IV fluid, antibiotic, pain management with Dilaudid-seen by surgery today and recommended possible transplant due to possible of earlier changes of necrosis-discussed the case in [facility] with Dr. ruelas general surgery who accepted the patient and patient will be transferred to [facility] today. Alcohol use hare: Does not seem to be any withdrawal symptoms currently but precautionary put on phenobarb for now. Hyponatremia: Seems multifactorial probably related to alcohol use/poor oral intake: Sodium is in 129 range, continue IV fluid : Monitor electrolytes and renal function closely in [facility]. Elevated blood pressure: Patient does not use any blood pressure medication at home, probably elevated secondary to anxiety and pain: We added metoprolol, continue to monitor blood pressure. in addition patient had leukocytosis-was started on IV antibiotics, blood culture and urine culture was sent. Blood culture negative at 48 hours, urine culture less than 10,000 cfu/ml. Health Concerns: As above. Plan of Treatment: As above. Assessment: As above. Discharge Date/Time: 02/28/21 18:00
--- NOTE | 2021-02-28 14:46 | P.CNID_ITS ---
History of Present Illness Data of Consult Service Date: 02/28/21 Requesting physician: Ranjit Wu Primary Care Provider: None Physician HPI Reason for consult: abdominal pain He presents with abrupt 9/10 abdominal pain since 02/25 ,day before admission He drinks two [employer] Cream every morning He still has abdominal pain and is taking clear liquids Review of Systems Review of Systems: Yes all other systems are reviewed and are negative PMFSH Past Medical History Medical History No significant medical problems Family History Family History Brother Cholelithiasis Family history: reviewed and not pertinent Social History Social History Household Members: Significant Other Housing: House Do you presently have visiting nurse or other home services: No Alcohol intake: current Alcohol intake frequency: 0-2 drinks per day Patient Tobacco Use Status: Never used Tobacco Substance Use Type: Marijuana service: No Meds Allergies Allergy/AdvReac Type Severity Reaction Status Date / Time OPIATES Allergy Intermediate VOMITING Uncoded 04/25/20 16:30 narcotics Allergy Unknown Uncoded 05/02/12 00:00 Active Medications: Current Medications Generic Name Dose Route Start Last Admin Trade Name Freq PRN Reason Stop Dose Admin Al Hydroxide/Mg Hydroxide 30 ml 02/26/21 08:52 02/26/21 16:00 Magnesium Hydrox/Alum Hydrox 30 Ml Oral.Susp PO 30 ml Q6H PRN Administration Dyspepsia Dextrose 25 gm 02/25/21 03:18 Dextrose 50 % 25 Gm/50 Ml Vial IVPUSH Q2H PRN hypoglycemia Diphenhydramine HCl 25 mg 02/26/21 21:08 02/26/21 22:05 Diphenhydramine Hcl 25 Mg Tablet PO 25 mg DAILY PRN Administration Insomnia Enoxaparin Sodium 40 mg 02/24/21 18:00 02/27/21 17:40 Enoxaparin Sodium 40 Mg/0.4 Ml Syringe SUBCUT 40 mg Q24H MIGEL Administration Famotidine 20 mg 02/26/21 21:00 02/28/21 08:13 Famotidine/Pf 20 Mg/2 Ml Vial IVPUSH 20 mg BID MIGEL Administration Hydromorphone HCl 1 mg 02/25/21 07:56 02/28/21 11:52 Hydromorphone Hcl 0.5 Mg/0.5 Ml Syringe IVPUSH 1 mg Q3H PRN Administration Pain, Severe (Pain Scale 7-10) Hydromorphone HCl 0.5 mg 02/28/21 09:25 02/28/21 13:58 Hydromorphone Hcl 0.5 Mg/0.5 Ml Syringe IVPUSH 0.5 mg Q3H PRN Administration Pain, Moderate (Pain Scale 4-6 Piperacillin Sod/Tazobactam 50 mls @ 100 mls/hr 02/25/21 09:00 02/28/21 09:42 Sod 3.375 gm/ Sodium Chloride IV Infused Q6H MIGEL Infusion Sodium Chloride 1,000 mls @ 125 mls/hr 02/27/21 08:15 02/28/21 14:02 Ns IVCONT 125 mls/hr .Q8H MIGEL Administration Medication 1 each 02/25/21 08:53 No Benzodiazepines MISCELLANE DAILY [facility] Metoprolol Tartrate 25 mg 02/26/21 21:00 02/28/21 08:13 Metoprolol Tartrate 25 Mg Tablet PO 25 mg BID MIGEL Administration Protocol Ondansetron HCl 4 mg 02/24/21 10:51 02/26/21 21:26 Ondansetron Hcl 4 Mg/2 Ml Vial IVPUSH 4 mg Q8H PRN Administration Nausea and Vomiting Pentoxifylline 400 mg 02/24/21 21:00 02/28/21 08:13 Pentoxifylline Er 400 Mg Tablet.Er PO 400 mg TID [facility] Administration Pharmacy Consult 1 each 02/25/21 03:18 Consult Rx Vancomycin Dosing MISCELLANE DAILY PRN Consult order Phenobarbital 30 mg 02/27/21 21:00 02/28/21 10:26 Phenobarbital 30 Mg Tablet PO 03/01/21 09:01 30 mg BID MIGEL Administration Protocol Phenobarbital 15 mg 03/02/21 09:00 Phenobarbital 15 Mg Tablet PO 03/03/21 09:01 DAILY [facility] Protocol Simethicone 80 mg 02/27/21 20:22 02/28/21 03:37 Simethicone 80 Mg Tab.Chew PO 80 mg QIDWMHS PRN Administration bloating Simethicone 40 mg 02/28/21 08:33 Simethicone 40 Mg/0.6 Ml 30 Ml Drops.Susp PO QID PRN GI Upset Sodium Chloride 3 ml 02/24/21 16:00 02/28/21 08:12 0.9 % Sodium Chloride Flush 3 Ml Syringe IVFLUSH 3 ml QSHIFT MIGEL Administration Home Medications Medication Instructions Recorded Confirmed Last Taken Type No Known Home Meds 02/24/21 02/24/21 Unknown History Physical Exam Vital Signs: Vital Signs: Last Vital Signs Temp 98.9 F 02/28/21 11:41 Pulse 104 H 02/28/21 11:41 Resp 18 02/28/21 11:41 BP 174/99 H 02/28/21 11:41 Pulse Ox 98 02/28/21 11:41 Body Mass Index 25.8 Const: General: cooperative HENMT: Head: Yes normal to inspection Mouth: Normal oral and palatal mucosa present Resp: Effort & Inspection: normal respiratory effort Cardio: Rate: regular rate Rhythm: regular rhythm GI: Palpation (GI): Firmness to palpation present (GI) and Tenderness to palpation present (GI) Skin: General skin exam: no rashes or lesions noted Results Labs CBC & Chem 7: 02/26/21 09:38 02/28/21 05:21 Labs: BMP 02/27/21 02/28/21 14:24 05:21 Sodium 129 L 129 L Potassium 3.3 Chloride 97 Carbon Dioxide 21 L BUN 14 Creatinine 0.68 Calcium 7.8 L Microbiology Microbiology Results: Microbiology 02/24/21 05:09 Blood - Venous Blood Culture - Preliminary No growth after 48 hours. 02/24/21 04:52 Blood - Venous Blood Culture - Preliminary No growth after 48 hours. 02/24/21 Unknown Urine clean catch - Urine link top Urine Culture - Final Assessment and Plan (1) Abnormal LFTs: Status: Acute (2) UTI (urinary tract infection): Status: Acute (3) Acute pancreatitis: Status: Acute This is likely related to alcohol and gallstones He has some abdominal discomfort still CT scan shows necrosis Would continue Zosyn until WBC normal next day or two and then stop likely GI is seeing It looks like he is going to [facility] ?further evaluation ?study biliary duct
[2021-02-28 15:08] VITALS: BP 166/105; PULSE 102; RESP 19; TEMP 37.8; O2SAT 96
== END 2021-02-28 18:00 | disposition short-term general hospital (02) | DRG 282 ==
LOC: HO.ED 05:33 → HO.EDOVER 11:02 → HO.IMC 19:49
PROVIDERS: Hospitalist; Internal Medicine Gastroenterology; Admitting Provider Family Medicine; Emergency Provider Student in an Organized Health Care Education/Training Program; Visit Provider Internal Medicine
DX: K85.90 Acute pancreatitis without necrosis or infection, unspecified (principal); E87.2 Acidosis; K85.11 Biliary acute pancreatitis with uninfected necrosis; K80.20 Calculus of gallbladder without cholecystitis without obstruction; E87.1 Hypo-osmolality and hyponatremia; D72.829 Elevated white blood cell count, unspecified; N39.0 Urinary tract infection, site not specified; K85.21 Alcohol induced acute pancreatitis with uninfected necrosis; F10.10 Alcohol abuse, uncomplicated; Z79.1 Long term (current) use of non-steroidal anti-inflammatories (NSAID); Z72.89 Other problems related to lifestyle; Z20.822 Contact with and (suspected) exposure to COVID-19; Z88.5 Allergy status to narcotic agent; Z79.899 Other long term (current) drug therapy
CPT/HCPCS: 36415; 71045; 74019; 74177; 76705; 80048; 80053; 80076; 80202; 81001; 81003; 82077; 82436; 83036; 83516; 83605; 83690; 83735; 83930; 83935; 84133; 84295; 84300; 84478; 85025; 85027; 85610; 87040; 87086; 87635; 99285; J1170; J1650; J2405; J2543; J2550; J2560; J3370; Q0163; Q9967

== ENCOUNTER 2021-06-04 07:39 | Outpatient (REF) | payer OTHER, SELFPAY ==
[2021-06-04 08:08] LABS: MANUAL DIFF FLAG NO
[2021-06-04 08:18] LABS: Basophils Percent Auto 0.1 % (0-2); Eosinophils Percent Auto 0.1 % (0-4); Hematocrit 25.3 % (42-52); Hemoglobin 7.3 g/dl (14.0-18.0); Imm Gran Abs Auto 0.08 X10*3/uL (0.00-0.03); Imm Gran Pct Auto 0.5 % (0.0-0.4); Lymphocytes Absolute Auto 1.7 X10*3/uL (1.2-4.9); Lymphocytes Percent Auto 11.3 % (20-40); Mean Corpuscular HGB Conc 28.9 g/dl (31.0-36.0); Mean Corpuscular Hemoglobin 23.6 pg (27.0-33.0); Mean Corpuscular Volume 81.9 fL (80-98); Mean Platelet Volume 8.7 fL (9.4-12.4); Monocytes Absolute Auto 1.2 X10*3/uL (0.1-1.2); Monocytes Percent Auto 8.1 % (2-11); Neutrophils Percent Auto 79.9 % (45-73); Platelet Count 586 X10*3/uL (160-400); Red Blood Count 3.09 X10*6/uL (4.60-5.80); Red Cell Distribution Width 15.5 % (11.0-16.0)
[2021-06-04 08:25] LABS: Estimated Average Glucose 111 mg/dL; Hemoglobin A1c % 5.5 %
[2021-06-04 08:43] LABS: Alanine Aminotransferase 35 U/L (0-40); Albumin Level 3.5 g/dL (3.5-5.0); Alkaline Phosphatase 235 U/L (39-117); Anion Gap 15 (12-20); Aspartate Amino Transferase 22 U/L (5-37); Bilirubin Total 0.7 mg/dL (0.0-1.0); Blood Urea Nitrogen 13 mg/dL (9-16); Calcium 9.2 mg/dL (8.4-10.2); Carbon Dioxide 26 mmol/L (22-29); Chloride 98 mmol/L (96-108); Cholesterol 140 mg/dL; Estimated Glomerular Filt Rate > 60; Glucose Fasting 121 mg/dL (60-99); HDL Cholesterol 22 mg/dL; Iron 11 mcg/dL (45-160); LDL Cholesterol Calculated 92 mg/dl; Percent Iron Saturation 5 % (15-50); Sodium 135 mmol/L (135-145); Total Iron Binding Capacity 213 mcg/dL (228-428); Total Protein 7.6 g/dL (6.5-8.0); Triglycerides 131 mg/dL; Unsaturated Iron Binding 202 ug/dL
[2021-06-04 09:00] LABS: Prostate Specific Antigen Scr 0.31 ng/mL (<0.05-4.0)
[2021-06-04 09:11] LABS: Erythrocyte Sedimentation Rate 115 MM/HR (0-15)
[2021-06-04 09:14] LABS: Appearance Urine HAZY; Color Urine YELLOW; Glucose Urine UA NEG (NEG); Leukocyte Esterase Urine NEG (NEG); Nitrite Urine NEG (NEG); Specific Gravity - Urine 1.025 (1.005-1.025); Urine Blood NEG (NEG); Urine Ketones 5 MG/DL (NEG); Urine Protein 1+ MG/DL (NEG-TRACE)
[2021-06-04 09:18] LABS: Folate 9.8 ng/mL (> or = 4.0); Vitamin B12 554 pg/mL (200-900)
[2021-06-04 09:26] LABS: Bacteria Urine TRACE /LPF; Mucus Urine 2+ /LPF; RBC Urine 0-2 /HPF (0)
[2021-06-04 09:27] LABS: Calcium Oxalate Crystals Urine 1+ /LPF
[2021-06-04 09:28] LABS: Amorphous Sediment Urine 2+ /LPF
[2021-06-06 13:41] LABS: CRP High Sensitivity >10.0 mg/L
== END 2021-06-04 07:40 | disposition home or self-care (01) ==
LOC: HO.LAB 07:39
PROVIDERS: PCP Family Medicine; Visit Provider Family Medicine
DX: Z00.00 Encounter for general adult medical examination without abnormal findings (principal); Z12.5 Encounter for screening for malignant neoplasm of prostate; E53.8 Deficiency of other specified B group vitamins; G57.90 Unspecified mononeuropathy of unspecified lower limb; R61 Generalized hyperhidrosis; R73.01 Impaired fasting glucose
CPT/HCPCS: 36415; 80053; 80061; 81001; 81003; 82607; 82746; 83036; 83540; 84153; 84443; 85025; 85652; 86141

== ENCOUNTER → 2021-06-05 13:38 | Outpatient (BNVA) | payer OTHER, SELFPAY | PROVIDERS: PCP Family Medicine; Referring Provider Family Medicine; Visit Provider Internal Medicine Cardiovascular Disease ==

== ENCOUNTER 2021-06-05 16:18 | Outpatient (REF) | payer OTHER, SELFPAY | END 2021-06-05 16:19 | disposition home or self-care (01) | LOC: HO.MDS 16:18 | PROVIDERS: Visit Provider Family Medicine | DX: D64.9 Anemia, unspecified (principal) | CPT/HCPCS: 36430; 86850; 86900; 86901; 86923; P9016 ==

== ENCOUNTER → 2021-06-11 07:31 | Outpatient (REF) | payer OTHER, SELFPAY ==
--- NOTE | 2021-06-11 07:33 | CA_ITS ---
Transthoracic Echocardiogram Patient (Last, First, Middle): Stanley Lugo, Gender: Male Date of : 1970 Age: 50 Procedure Date: 06/11/2021 Procedure Type: Transthoracic Echocardiogram Location: OP Height: 177.8 cm Weight: 63.5 kg BSA: 1.79 m2 Heart Rate: bpm BP: 130 / 90 mmHg Business Reporter: CHICHI Arana MD: Lam Ibanez MD Building Custodian: Lam Ibanez MD Symptoms: I46.9 - Cardiac arrest, cause unspecified Study Quality: Good ECG Rhythm: Sinus Conclusions: - 1. Low normal LV systolic function with grade 1 LV diastolic dysfunction 2. Normal cardiac valvular Doppler 3. Normal RV systolic pressure 4. No pericardial effusion Findings Left Ventricle Normal left ventricular cavity size. There is normal left ventricular wall thickness. The left ventricular systolic function is low normal. The visually estimated ejection fraction is between 50-55%. Spectral Doppler is indicative of an impaired relaxation filling pattern. E/E prime ratio is <8, consistent with normal filling pressures. Evidence suggests grade I (mild) diastolic dysfunction. Right Ventricle Normal right ventricular cavity size and systolic function. Atria Both atria are normal in size. Interatrial shunt cannot be excluded. Aortic Valve Normal aortic valve structure and function. There is no aortic valve stenosis. There is no aortic valve regurgitation. Mitral Valve Normal mitral valve structure and function. There is trace mitral valve regurgitation. There is no mitral valve stenosis. Pulmonic Valve The pulmonic valve is likely normal. There is trace pulmonic valve regurgitation. Tricuspid Valve Normal tricuspid valve structure. There is trace tricuspid valve regurgitation. The right ventricular systolic pressure is normal. The right ventricular systolic pressure is 16 mmHg. Normal right atrial pressure. There is no evidence of pulmonary hypertension. Great Vessels All visible segments of the aorta are normal in size. The pulmonary artery was not well visualized. Venous The inferior vena cava is normal in size and collapses greater than 50% with inspiration. Pericardium/Pleural There is no evidence of pericardial effusion. Prior Study Comparison No prior study available for comparison. Measurements 2D Linear Measurements IVSd: 0.92 0.6-0.9/0.6-1.0 cm LVIDd: 4.58 3.9-5.3/4.2-5.9 cm LVIDd Index: 2.56 2.4-3.2/2.2-3.1 cm/m2 LVIDs: 3.09 2.0-3.6 cm LVPWd: 0.91 0.7-1.1 cm Ao Root: 3.20 2.1-3.5 cm LA Diam: 3.50 2.7-3.8/3.0-4.0 cm LAIDs Index: 1.96 1.5-2.3 cm/m2 LV Mass: 173.99 67-162/88-224 g LV Mass Index: 97.20 43-95/49-115 g/m2 LVOT Diam: 2.30 3.0+(-)1.3 cm 2D Systolic Function EF 4C: 50.90 >55% EF 2C: 51.60 >55% EF BiP: 52.70 >55% Mitral Valve MV Pk E: 0.50 MV PK A: 0.74 MV Decel Time: 110.00 E/A: 0.70 E'Lateral: 15.00 E'Medial: 12.10 E/E' Med: 4.10 E/E' Lat: 3.30 PHT: 32.00 MVA PHT: 6.88 Decel [place]: 4.53 Aortic Valve AoV Pk Matt: 1.46 AoV Mn Matt: 0.93 AoV VTI: 0.19 AoV Pk Grad: 9.00 Aov Mn Grad: 4.00 CARLEY Cont.VTI: 3.42 LVOT LVOT Pk Matt: 1.15 LVOT Mn Matt: 0.78 LVOT VTI: 0.16 LVOT Pk Grad: 5.00 LVOT Mn Grad: 3.00 LVOT Diam: 2.30 LVOT Area: 4.15 Diastolic Function MV Pk E: 0.50 MV Pk A: 0.74 E/A: 0.70 E'Medial: 12.10 E/E' Med: 4.10 E' Laterial: 15.00 E/E' Lat: 3.30 Right Ventricle TAPSE (mm): 2.28 TVS' Matt: 16.40 Tricuspid Valve TR Pk Matt: 1.83 TR Pk Grad: 13.00 RA Press: 3.00 RVSP: 16.00 Great Vessels Aorta Ao Root-2D: 3.20 2.0-3.7 cm Ao Asc: 3.20 2.1-3.4 cm Ao Arch: 2.70 Updated in Other Vendor System with Status of Final Lam Ibanez MD electronically signed on 06/11/2021 4:36:11 PM with status of Final
[2021-06-11 08:17] LABS: MANUAL DIFF FLAG NO
[2021-06-11 08:29] LABS: Basophils Percent Auto 0.2 % (0-2); Eosinophils Absolute Auto 0.1 X10*3/uL (0.0-0.4); Eosinophils Percent Auto 0.3 % (0-4); Hematocrit 26.8 % (42.0-52.0); Hemoglobin 7.9 g/dl (14.0-18.0); Imm Gran Pct Auto 0.6 % (0.0-0.4); Lymphocytes Absolute Auto 1.3 X10*3/uL (1.2-4.9); Lymphocytes Percent Auto 8.1 % (20-40); Mean Corpuscular HGB Conc 29.5 g/dl (31.0-36.0); Mean Corpuscular Hemoglobin 24.3 pg (27.0-33.0); Mean Corpuscular Volume 82.5 fL (80.0-98.0); Mean Platelet Volume 8.6 fL (9.4-12.4); Monocytes Absolute Auto 0.8 X10*3/uL (0.1-1.2); Monocytes Percent Auto 5.1 % (2-11); Neutrophils Percent Auto 85.7 % (45-73); Platelet Count 636 X10*3/uL (160-400); Red Blood Count 3.25 X10*6/uL (4.60-5.80); Red Cell Distribution Width 16.1 % (11.0-16.0); White Blood Count 16.1 X10*3/uL (4.8-10.8)
== END ==
LOC: HO.CARD 07:31
PROVIDERS: PCP Family Medicine; Visit Provider Internal Medicine Cardiovascular Disease
DX: Z00.00 Encounter for general adult medical examination without abnormal findings (principal); R00.0 Tachycardia, unspecified; I46.9 Cardiac arrest, cause unspecified
CPT/HCPCS: 36415; 85025; 93306

== ENCOUNTER 2021-06-13 13:36 | Outpatient (REF) | payer OTHER, SELFPAY | END 2021-06-13 13:37 | disposition home or self-care (01) | LOC: HO.MDS 13:36 | PROVIDERS: PCP Family Medicine; Visit Provider Internal Medicine | DX: D64.9 Anemia, unspecified (principal) | CPT/HCPCS: 36430; 86850; 86900; 86901; 86923; P9016 ==

== ENCOUNTER 2021-06-16 08:33 | Outpatient (REF) | payer OTHER, SELFPAY ==
[2021-06-16 08:57] LABS: MANUAL DIFF FLAG NO
[2021-06-16 09:44] LABS: Basophils Percent Auto 0.2 % (0-2); Eosinophils Absolute Auto 0.1 X10*3/uL (0.0-0.4); Eosinophils Percent Auto 0.3 % (0-4); Hematocrit 32.3 % (42.0-52.0); Hemoglobin 9.6 g/dl (14.0-18.0); Imm Gran Abs Auto 0.07 X10*3/uL (0.00-0.03); Imm Gran Pct Auto 0.5 % (0.0-0.4); Lymphocytes Absolute Auto 1.3 X10*3/uL (1.2-4.9); Lymphocytes Percent Auto 8.6 % (20-40); Mean Corpuscular HGB Conc 29.7 g/dl (31.0-36.0); Mean Corpuscular Volume 84.1 fL (80.0-98.0); Monocytes Absolute Auto 0.9 X10*3/uL (0.1-1.2); Neutrophils Absolute Auto 12.8 x10*3/uL (2.0-8.3); Neutrophils Percent Auto 84.4 % (45-73); Platelet Count 666 X10*3/uL (160-400); Red Blood Count 3.84 X10*6/uL (4.60-5.80); Red Cell Distribution Width 16.5 % (11.0-16.0); White Blood Count 15.1 X10*3/uL (4.8-10.8)
== END 2021-06-16 08:34 | disposition home or self-care (01) ==
LOC: HO.LAB 08:33
PROVIDERS: PCP Family Medicine; Visit Provider Internal Medicine
DX: D64.9 Anemia, unspecified (principal)
CPT/HCPCS: 36415; 85025

== ENCOUNTER 2021-06-20 07:47 | Outpatient (REF) | payer OTHER, SELFPAY ==
[2021-06-20 08:01] LABS: MANUAL DIFF FLAG NO
[2021-06-20 08:19] LABS: Basophils Percent Auto 0.3 % (0-2); Eosinophils Absolute Auto 0.1 X10*3/uL (0.0-0.4); Eosinophils Percent Auto 0.7 % (0-4); Hematocrit 33.5 % (42.0-52.0); Hemoglobin 9.9 g/dl (14.0-18.0); Imm Gran Abs Auto 0.03 X10*3/uL (0.00-0.03); Imm Gran Pct Auto 0.3 % (0.0-0.4); Lymphocytes Absolute Auto 1.4 X10*3/uL (1.2-4.9); Lymphocytes Percent Auto 11.7 % (20-40); Mean Corpuscular HGB Conc 29.6 g/dl (31.0-36.0); Mean Corpuscular Hemoglobin 24.8 pg (27.0-33.0); Monocytes Absolute Auto 0.7 X10*3/uL (0.1-1.2); Monocytes Percent Auto 5.9 % (2-11); NRBC Pct Auto 0.3 /100WBC (0.0-0.2); Neutrophils Absolute Auto 9.7 x10*3/uL (2.0-8.3); Neutrophils Percent Auto 81.1 % (45-73); Platelet Count 705 X10*3/uL (160-400); Red Blood Count 3.99 X10*6/uL (4.60-5.80); Red Cell Distribution Width 16.5 % (11.0-16.0); White Blood Count 11.9 X10*3/uL (4.8-10.8)
== END 2021-06-20 07:48 | disposition home or self-care (01) ==
LOC: HO.LAB 07:47
PROVIDERS: PCP Family Medicine; Visit Provider Family Medicine
DX: R00.0 Tachycardia, unspecified (principal); D64.9 Anemia, unspecified
CPT/HCPCS: 36415; 85025

== ENCOUNTER 2021-07-01 06:22 | Outpatient (REF) | payer OTHER, SELFPAY ==
[2021-07-01 06:28] LABS: MANUAL DIFF FLAG NO
[2021-07-01 07:30] LABS: Basophils Percent Auto 0.1 % (0-2); Eosinophils Absolute Auto 0.1 X10*3/uL (0.0-0.4); Eosinophils Percent Auto 0.7 % (0-4); Hematocrit 28.9 % (42.0-52.0); Hemoglobin 8.7 g/dl (14.0-18.0); Imm Gran Abs Auto 0.11 X10*3/uL (0.00-0.03); Imm Gran Pct Auto 0.7 % (0.0-0.4); Lymphocytes Absolute Auto 1.4 X10*3/uL (1.2-4.9); Lymphocytes Percent Auto 9.4 % (20-40); Mean Corpuscular HGB Conc 30.1 g/dl (31.0-36.0); Mean Corpuscular Hemoglobin 25.3 pg (27.0-33.0); Monocytes Percent Auto 6.9 % (2-11); Neutrophils Absolute Auto 12.3 x10*3/uL (2.0-8.3); Neutrophils Percent Auto 82.2 % (45-73); Platelet Count 585 X10*3/uL (160-400); Red Blood Count 3.44 X10*6/uL (4.60-5.80); Red Cell Distribution Width 17.8 % (11.0-16.0); White Blood Count 14.9 X10*3/uL (4.8-10.8)
[2021-07-01 08:08] LABS: TSH reflex Free T4 2.96 uIU/mL (0.32-4.0)
[2021-07-01 09:01] LABS: Appearance Urine CLEAR; Color Urine YELLOW; Glucose Urine UA NEG (NEG); Leukocyte Esterase Urine NEG (NEG); Nitrite Urine NEG (NEG); PH 6.5 (5.0-8.0); Urine Blood NEG (NEG); Urine Ketones NEG (NEG); Urine Protein TRACE MG/DL (NEG-TRACE)
== END 2021-07-01 06:23 | disposition home or self-care (01) ==
LOC: HO.LAB 06:22
PROVIDERS: PCP Family Medicine; Visit Provider Family Medicine
DX: Z00.00 Encounter for general adult medical examination without abnormal findings (principal); D64.9 Anemia, unspecified; D75.839 Thrombocytosis, unspecified
CPT/HCPCS: 36415; 81003; 84443; 85025

== ENCOUNTER 2021-07-07 07:41 | Outpatient (REF) | payer OTHER, SELFPAY | END 2021-07-07 07:42 | disposition home or self-care (01) | LOC: HO.MDS 07:41 | PROVIDERS: Visit Provider Internal Medicine | DX: D50.9 Iron deficiency anemia, unspecified (principal) | CPT/HCPCS: 96365; 96366; J1200; J1750; Q0163 ==

== ENCOUNTER 2021-07-17 06:20 | Outpatient (REF) | payer OTHER, SELFPAY ==
--- NOTE | ~2021-07-17 | XR_ITS ---
EXAMINATION: XR SHOULDER, LEFT CLINICAL INFORMATION: Pain COMPARISON: None TECHNIQUE: AP external rotation, Grashey, scapular Y, and axillary views of the left shoulder. FINDINGS: The bones and soft tissues are normal. No fracture. Glenohumeral and acromioclavicular alignment is anatomic with normal joint space. No abnormal soft tissue calcifications. XR/XR shoulder LT min 2V IMPRESSION: Normal left shoulder.
[2021-07-17 06:42] LABS: MANUAL DIFF FLAG NO
[2021-07-17 07:16] LABS: Basophils Percent Auto 0.4 % (0-2); Eosinophils Absolute Auto 0.2 X10*3/uL (0.0-0.4); Eosinophils Percent Auto 1.8 % (0-4); Hematocrit 30.6 % (42.0-52.0); Hemoglobin 9.1 g/dl (14.0-18.0); Imm Gran Abs Auto 0.06 X10*3/uL (0.00-0.03); Imm Gran Pct Auto 0.6 % (0.0-0.4); Lymphocytes Absolute Auto 1.8 X10*3/uL (1.2-4.9); Lymphocytes Percent Auto 17.8 % (20-40); Mean Corpuscular HGB Conc 29.7 g/dl (31.0-36.0); Mean Corpuscular Hemoglobin 26.5 pg (27.0-33.0); Mean Platelet Volume 9.2 fL (9.4-12.4); Monocytes Absolute Auto 0.6 X10*3/uL (0.1-1.2); Monocytes Percent Auto 5.6 % (2-11); Neutrophils Absolute Auto 7.2 x10*3/uL (2.0-8.3); Neutrophils Percent Auto 73.8 % (45-73); Platelet Count 645 X10*3/uL (160-400); Red Blood Count 3.44 X10*6/uL (4.60-5.80); Red Cell Distribution Width 19.1 % (11.0-16.0); White Blood Count 9.8 X10*3/uL (4.8-10.8)
== END 2021-07-17 06:21 | disposition home or self-care (01) ==
LOC: HO.LAB 06:20
PROVIDERS: PCP Family Medicine; Visit Provider Family Medicine
DX: M25.512 Pain in left shoulder (principal); D64.9 Anemia, unspecified
CPT/HCPCS: 36415; 73030; 85025; 86850; 86900; 86901

== ENCOUNTER 2021-07-21 06:12 | Outpatient (REF) | payer OTHER, SELFPAY ==
[2021-07-21 09:32] LABS: Folate 13.3 ng/mL (> or = 4.0); Vitamin B12 405 pg/mL (200-900)
== END 2021-07-21 06:13 | disposition home or self-care (01) ==
LOC: HO.LAB 06:12
PROVIDERS: PCP Family Medicine; Visit Provider Family Medicine
DX: E53.8 Deficiency of other specified B group vitamins (principal); G57.90 Unspecified mononeuropathy of unspecified lower limb
CPT/HCPCS: 36415; 82607; 82746

== ENCOUNTER 2021-08-25 12:21 | Outpatient (REF) | payer OTHER, SELFPAY ==
--- NOTE | ~2021-08-25 | XR_ITS ---
EXAMINATION: CHEST AND CERVICAL SPINE. CLINICAL INFORMATION: Pneumonia. Neck and left shoulder pain. COMPARISON: None TECHNIQUE: Chest 2 views. C-spine 3 views. FINDINGS: Chest: The lungs are expanded with patchy consolidation left lung base and lingula suggestive of infiltrate. Rest of the lungs are clear. The heart size and pulmonary vascularity is normal. No gross bony abnormality. XR/XR cervical spine 2V IMPRESSION: Lingular and left lower lobe infiltrate. Rest of the lungs are clear.
--- NOTE | ~2021-08-25 | XR_ITS ---
EXAMINATION: CHEST AND CERVICAL SPINE. CLINICAL INFORMATION: Pneumonia. Neck and left shoulder pain. COMPARISON: None TECHNIQUE: Chest 2 views. C-spine 3 views. FINDINGS: Chest: The lungs are expanded with patchy consolidation left lung base and lingula suggestive of infiltrate. Rest of the lungs are clear. The heart size and pulmonary vascularity is normal. No gross bony abnormality. XR/XR chest 2V IMPRESSION: Lingular and left lower lobe infiltrate. Rest of the lungs are clear.
[2021-08-25 13:53] LABS: MANUAL DIFF FLAG NO
[2021-08-25 13:56] LABS: Basophils Percent Auto 0.2 % (0-2); Eosinophils Percent Auto 0.2 % (0-4); Hematocrit 32.9 % (42.0-52.0); Hemoglobin 10.2 g/dl (14.0-18.0); Imm Gran Abs Auto 0.05 X10*3/uL (0.00-0.03); Imm Gran Pct Auto 0.4 % (0.0-0.4); Lymphocytes Absolute Auto 1.2 X10*3/uL (1.2-4.9); Lymphocytes Percent Auto 9.2 % (20-40); Mean Corpuscular Hemoglobin 28.3 pg (27.0-33.0); Mean Corpuscular Volume 91.1 fL (80.0-98.0); Monocytes Percent Auto 8.2 % (2-11); Neutrophils Absolute Auto 10.2 x10*3/uL (2.0-8.3); Neutrophils Percent Auto 81.8 % (45-73); Platelet Count 344 X10*3/uL (160-400); Red Blood Count 3.61 X10*6/uL (4.60-5.80); Red Cell Distribution Width 17.6 % (11.0-16.0); White Blood Count 12.5 X10*3/uL (4.8-10.8)
[2021-08-25 14:25] LABS: Alanine Aminotransferase 16 U/L (0-40); Albumin Level 4.2 g/dL (3.5-5.0); Alkaline Phosphatase 138 U/L (39-117); Anion Gap 15 (12-20); Aspartate Amino Transferase 13 U/L (5-37); Blood Urea Nitrogen 13 mg/dL (9-16); Calcium 10.1 mg/dL (8.4-10.2); Carbon Dioxide 26 mmol/L (22-29); Chloride 97 mmol/L (96-108); Cholesterol 142 mg/dL; Estimated Glomerular Filt Rate > 60; Glucose Random 137 mg/dL (60-115); HDL Cholesterol 34 mg/dL; LDL Cholesterol Calculated 84 mg/dl; Potassium 3.9 mmol/L (3.3-5.1); Sodium 134 mmol/L (135-145); Total Protein 8.6 g/dL (6.5-8.0); Triglycerides 124 mg/dL
== END 2021-08-25 12:22 | disposition home or self-care (01) ==
LOC: HO.WFDLDS 12:21
PROVIDERS: PCP Family Medicine; Visit Provider Family Medicine
DX: Z00.00 Encounter for general adult medical examination without abnormal findings (principal); J18.9 Pneumonia, unspecified organism; M54.2 Cervicalgia; M25.512 Pain in left shoulder; E78.6 Lipoprotein deficiency
CPT/HCPCS: 36415; 71046; 72040; 80053; 80061; 85025

== ENCOUNTER 2021-08-29 06:29 | Outpatient (REF) | payer OTHER, SELFPAY ==
--- NOTE | ~2021-08-29 | XR_ITS ---
EXAMINATION: XR CHEST CLINICAL INFORMATION: Pneumonia COMPARISON: Previous chest x-ray, most recent 08/25/2021 TECHNIQUE: 2 views of the chest were obtained. FINDINGS: The cardiac and mediastinal contours are stable. There is airspace disease seen in the left lower lobe and lingula suggestive of pneumonia. This is similar to most recent exam 08/25/2021. The right lung is clear. There is a small left pleural effusion. There is no right pleural effusion. Bony structures are unremarkable. XR/XR chest 2V IMPRESSION: Left base pneumonia and small pleural effusion similar to 08/25/2021.
== END 2021-08-29 06:30 | disposition home or self-care (01) ==
LOC: HO.XRAY 06:29
PROVIDERS: PCP Family Medicine; Visit Provider Family Medicine
DX: J18.9 Pneumonia, unspecified organism (principal)
CPT/HCPCS: 71046

== ENCOUNTER → 2021-10-23 07:54 | Outpatient (REF) | payer OTHER, SELFPAY ==
--- NOTE | ~2021-10-23 | NM_ITS ---
Myocardial perfusion study Indication: History of cardiac arrest to evaluate for myocardial ischemia Technique: The patient was brought in for a Lexiscan perfusion study on 10/23/2021. Patient performed low-level exercise and was injected 0.4 mg of Lexiscan intravenously. Within a minute of injection, 25 mCi of sestamibi was given intravenously. Images were obtained using the SPECT gamma camera interlaced with the gating device. Images were obtained in supine position. Resting perfusion study was performed on 10/28/2021. Patient was administered 25 mCi of sestamibi intravenously at rest. Images were then obtained in supine position. Images obtained with and without CT attenuation. Total DLP 83 mGy-cm. Images were processed with the software and compared side to side in short axis, horizontal long axis and vertical long axis views. Findings: The stress perfusion study showed non attenuated images show mildly reduced uptake in the basal and mid inferior wall as well as basal anterior wall of the LV myocardium. Remainder of the LV myocardium normally attenuation corrected images show minimal thinning of the inferior wall and mildly reduced uptake in the cardiac. The gated study shows reduced LV systolic function with calculated LVEF of 44%. LV cavity is mildly to moderately dilated size. The gated study shows diffusely reduced wall thickening and contraction of segments. Resting study shows no change in perfusion pattern compared to stress perfusion study. Gating at rest reveals diffuse wall motion with ejection fraction at 42%. The findings are consistent with no clear reversible defect suggestive of ischemia. Mild intensity fixed defect may be due to attenuation artifact. Cardiomyopathy process. NM/NM mark perf SPECT rest & str Impression: 1. Myocardial perfusion imaging study shows no reversible ischemia 2. Gated LVEF is 44% 3. Transient ischemic dilatation not present but LV cavity is dilated EKG is nondiagnostic for ischemia
--- NOTE | 2021-10-23 07:57 | CA_ITS ---
Acquisition Time: 2021-10-23 08:29:58 Total Exercise Time: 00:02:00 Test Indications: tachycardia Medications: see chart Protocol: LEXISCAN Max HR: 131 BPM 76% of Pred: 171 BPM Max BP: 124/066 mmHG Max Work Load: 1.6 METS Pharmacological stress test with Lexiscan injection, while walking on treadmill without anginal symptoms, without arrythmia, with normotensive response to injection, with nondiagnostic EKG for ischemia.In recovery he reported ligheadedness that was treated with Aminophylline 75mg IV to reverse Lexiscan with resolution of symptom. Nuclear images pending. Test reviewed with Dr Hansen. Referred By: Lam Ibanez Overread By: GRETCHEN CLARK
== END ==
LOC: HO.CARD 07:54
PROVIDERS: PCP Family Medicine; Visit Provider Internal Medicine Cardiovascular Disease
DX: I46.9 Cardiac arrest, cause unspecified (principal)
CPT/HCPCS: 78452; 93017; A9500; J0280; J2785

== ENCOUNTER → 2021-12-09 08:12 | Outpatient (BNVA) | payer OTHER, SELFPAY | PROVIDERS: PCP Family Medicine; Referring Provider Family Medicine; Visit Provider Internal Medicine Cardiovascular Disease | DX: R00.0 Tachycardia, unspecified (principal) | CPT/HCPCS: 99212 ==

== ENCOUNTER 2022-01-15 09:24 | Outpatient (REF) | payer OTHER, SELFPAY ==
[2022-01-15 11:39] LABS: Basophils Percent Auto 0.3 % (0-2); Eosinophils Absolute Auto 0.1 X10*3/uL (0.0-0.4); Eosinophils Percent Auto 1.1 % (0-4); Hematocrit 36.1 % (42.0-52.0); Imm Gran Abs Auto 0.02 X10*3/uL (0.00-0.03); Imm Gran Pct Auto 0.3 % (0.0-0.4); Lymphocytes Absolute Auto 1.5 X10*3/uL (1.2-4.9); Lymphocytes Percent Auto 19.3 % (20-40); MANUAL DIFF FLAG SCAN; Mean Corpuscular HGB Conc 33.2 g/dl (31.0-36.0); Mean Corpuscular Hemoglobin 31.1 pg (27.0-33.0); Mean Corpuscular Volume 93.5 fL (80.0-98.0); Monocytes Absolute Auto 0.5 X10*3/uL (0.1-1.2); Monocytes Percent Auto 5.7 % (2-11); Neutrophils Absolute Auto 5.8 x10*3/uL (2.0-8.3); Neutrophils Percent Auto 73.3 % (45-73); PLT CLUMP 1; Red Blood Count 3.86 X10*6/uL (4.60-5.80); Red Cell Distribution Width 12.4 % (11.0-16.0); SCAN SMEAR FLAG 1
[2022-01-15 11:42] LABS: Platelet Count 172 X10*3/uL (160-400); White Blood Count 7.9 X10*3/uL (4.8-10.8)
[2022-01-15 11:46] LABS: Cholesterol 154 mg/dL; HDL Cholesterol 33 mg/dL; LDL Cholesterol Calculated 89 mg/dl; Triglycerides 164 mg/dL
[2022-01-15 11:54] LABS: SLIDE REVIEW VERIFIED
== END 2022-01-15 09:25 | disposition home or self-care (01) ==
LOC: HO.WFDLDS 09:24
PROVIDERS: Visit Provider Family Medicine
DX: Z00.00 Encounter for general adult medical examination without abnormal findings (principal); D64.9 Anemia, unspecified; E78.6 Lipoprotein deficiency
CPT/HCPCS: 36415; 80061; 85025

== ENCOUNTER → 2022-06-02 12:44 | Outpatient (BNVA) | payer OTHER, SELFPAY | PROVIDERS: PCP Family Medicine; Visit Provider Psychiatry & Neurology Neurology | DX: R20.2 Paresthesia of skin (principal); R26.9 Unspecified abnormalities of gait and mobility; R06.83 Snoring; G47.10 Hypersomnia, unspecified | CPT/HCPCS: 99202 ==

== ENCOUNTER → 2022-06-10 16:06 | Outpatient (REF) | payer OTHER, SELFPAY | LOC: HO.SL 16:06 | PROVIDERS: PCP Family Medicine; Visit Provider Psychiatry & Neurology Neurology | DX: G47.33 Obstructive sleep apnea (adult) (pediatric) (principal) | CPT/HCPCS: 95806 ==

== ENCOUNTER 2022-07-16 11:16 | Outpatient (REF) | payer OTHER, SELFPAY ==
--- NOTE | 2022-07-16 08:00 | EMG_ITS ---
Bilateral tibial and peroneal motor studies were performed. Bilateral superficial peroneal and sural sensory studies were performed. Tibial H reflexes were obtained, and paraspinal muscles were tested with a needle. IMPRESSION: Mild to moderate axonal sensory motor peripheral neuropathy, which has affected sensory nerves much more than motor. MD YASH Lira/LAURA / [id number]
== END 2022-07-16 11:17 | disposition home or self-care (01) ==
LOC: HO.NEURO 11:16
PROVIDERS: PCP Family Medicine; Visit Provider Psychiatry & Neurology Neurology
DX: R20.0 Anesthesia of skin (principal); R20.2 Paresthesia of skin
CPT/HCPCS: 95886; 95911

== ENCOUNTER 2022-08-06 07:04 | Outpatient (REF) | payer OTHER, SELFPAY ==
[2022-08-06 07:07] LABS: MANUAL DIFF FLAG NO
[2022-08-06 07:26] LABS: Basophils Percent Auto 0.5 % (0-2); Eosinophils Absolute Auto 0.2 X10*3/uL (0.0-0.4); Hematocrit 41.7 % (42.0-52.0); Hemoglobin 13.8 g/dl (14.0-18.0); Imm Gran Abs Auto 0.02 X10*3/uL (0.00-0.03); Imm Gran Pct Auto 0.3 % (0.0-0.4); Lymphocytes Percent Auto 26.6 % (20-40); Mean Corpuscular HGB Conc 33.1 g/dl (31.0-36.0); Mean Corpuscular Hemoglobin 30.9 pg (27.0-33.0); Mean Corpuscular Volume 93.5 fL (80.0-98.0); Mean Platelet Volume 10.7 fL (9.4-12.4); Monocytes Absolute Auto 0.4 X10*3/uL (0.1-1.2); Monocytes Percent Auto 5.9 % (2-11); Neutrophils Absolute Auto 4.8 x10*3/uL (2.0-8.3); Neutrophils Percent Auto 64.7 % (45-73); Platelet Count 208 X10*3/uL (160-400); Red Blood Count 4.46 X10*6/uL (4.60-5.80); Red Cell Distribution Width 12.1 % (11.0-16.0); White Blood Count 7.4 X10*3/uL (4.8-10.8)
[2022-08-06 08:16] LABS: Alanine Aminotransferase 15 U/L (0-40); Albumin Level 4.6 g/dL (3.5-5.0); Alkaline Phosphatase 74 U/L (39-117); Anion Gap 11 (12-20); Aspartate Amino Transferase 15 U/L (5-37); Bilirubin Total 0.7 mg/dL (0.0-1.0); Blood Urea Nitrogen 20 mg/dL (9-16); Calcium 9.6 mg/dL (8.4-10.2); Carbon Dioxide 27 mmol/L (22-29); Chloride 106 mmol/L (96-108); Cholesterol 160 mg/dL; Estimated Glomerular Filt Rate > 60; Glucose Fasting 152 mg/dL (60-99); HDL Cholesterol 37 mg/dL; LDL Cholesterol Calculated 97 mg/dl; Potassium 4.1 mmol/L (3.3-5.1); Prostate Specific Antigen Scr 0.31 ng/mL (<0.05-4.0); Sodium 140 mmol/L (135-145); TSH reflex Free T4 1.11 uIU/mL (0.32-4.0); Total Protein 7.5 g/dL (6.5-8.0); Triglycerides 133 mg/dL
[2022-08-06 09:05] LABS: Appearance Urine Clear; Color Urine Yellow; Glucose Urine UA Negative (Negative); Leukocyte Esterase Urine Negative (Negative); Nitrite Urine Negative (Negative); PH 5.5 (5.0-9.0); Specific Gravity - Urine 1.025 (1.005-1.025); Urine Blood Negative (Negative); Urine Ketones Trace mg/dL (Negative); Urine Protein Trace mg/dL (Neg-Trace)
[2022-08-06 10:07] LABS: Creatinine Urine 240.27 mg/dL
== END 2022-08-06 07:05 | disposition home or self-care (01) ==
LOC: HO.LAB 07:04
PROVIDERS: PCP Family Medicine; Visit Provider Family Medicine
DX: Z00.00 Encounter for general adult medical examination without abnormal findings (principal); I10 Essential (primary) hypertension; Z12.5 Encounter for screening for malignant neoplasm of prostate; Z13.220 Encounter for screening for lipoid disorders; Z13.29 Encounter for screening for other suspected endocrine disorder
CPT/HCPCS: 36415; 80053; 80061; 81003; 82043; 84153; 84443; 85025

== ENCOUNTER → 2022-09-01 07:57 | Outpatient (BNVA) | payer OTHER, SELFPAY | PROVIDERS: PCP Family Medicine; Visit Provider Psychiatry & Neurology Neurology | DX: R26.9 Unspecified abnormalities of gait and mobility (principal); R06.83 Snoring; G47.10 Hypersomnia, unspecified; G62.9 Polyneuropathy, unspecified; R20.2 Paresthesia of skin | CPT/HCPCS: 99212 ==

== ENCOUNTER → 2022-10-08 19:30 | Outpatient (REF) | payer OTHER, SELFPAY | LOC: HO.SL 19:30 | PROVIDERS: PCP Family Medicine; Visit Provider Psychiatry & Neurology Neurology | DX: G47.10 Hypersomnia, unspecified (principal); R06.83 Snoring | CPT/HCPCS: 95810 ==

== ENCOUNTER 2022-10-27 06:26 | Outpatient (REF) | payer OTHER, SELFPAY ==
[2022-10-27 06:34] LABS: MANUAL DIFF FLAG NO
[2022-10-27 07:37] LABS: Basophils Absolute Auto 0.1 X10*3/uL (0.0-0.2); Basophils Percent Auto 0.7 % (0-2); Eosinophils Absolute Auto 0.3 X10*3/uL (0.0-0.4); Eosinophils Percent Auto 2.5 % (0-4); Hematocrit 43.5 % (42.0-52.0); Hemoglobin 14.6 g/dl (14.0-18.0); Imm Gran Abs Auto 0.05 X10*3/uL (0.00-0.03); Imm Gran Pct Auto 0.5 % (0.0-0.4); Lymphocytes Absolute Auto 3.3 X10*3/uL (1.2-4.9); Lymphocytes Percent Auto 31.5 % (20-40); Mean Corpuscular HGB Conc 33.6 g/dl (31.0-36.0); Mean Corpuscular Hemoglobin 30.9 pg (27.0-33.0); Monocytes Absolute Auto 0.6 X10*3/uL (0.1-1.2); Neutrophils Absolute Auto 6.2 x10*3/uL (2.0-8.3); Neutrophils Percent Auto 58.8 % (45-73); Platelet Count 278 X10*3/uL (160-400); Red Blood Count 4.73 X10*6/uL (4.60-5.80); Red Cell Distribution Width 12.1 % (11.0-16.0); White Blood Count 10.5 X10*3/uL (4.8-10.8)
[2022-10-27 08:20] LABS: Alanine Aminotransferase 17 U/L (0-40); Albumin Level 4.7 g/dL (3.5-5.0); Alkaline Phosphatase 115 U/L (39-117); Anion Gap 18 (12-20); Aspartate Amino Transferase 12 U/L (5-37); Bilirubin Total 0.6 mg/dL (0.0-1.0); Blood Urea Nitrogen 15 mg/dL (9-16); Calcium 9.8 mg/dL (8.4-10.2); Carbon Dioxide 24 mmol/L (22-29); Chloride 99 mmol/L (96-108); Cholesterol 217 mg/dL; Estimated Glomerular Filt Rate > 60; Glucose Fasting 406 mg/dL (60-99); HDL Cholesterol 41 mg/dL; LDL Cholesterol Calculated 111 mg/dl; Sodium 137 mmol/L (135-145); Total Protein 7.7 g/dL (6.5-8.0); Triglycerides 326 mg/dL
[2022-10-27 08:33] LABS: TSH reflex Free T4 1.29 uIU/mL (0.32-4.0)
[2022-10-27 11:34] LABS: Estimated Average Glucose 266 mg/dL; Hemoglobin A1c % 10.9 %
== END 2022-10-27 06:27 | disposition home or self-care (01) ==
LOC: HO.LAB 06:26
PROVIDERS: PCP Family Medicine; Visit Provider Family Medicine
DX: Z00.00 Encounter for general adult medical examination without abnormal findings (principal); E78.6 Lipoprotein deficiency; D64.9 Anemia, unspecified; R73.01 Impaired fasting glucose
CPT/HCPCS: 36415; 80053; 80061; 83036; 84443; 85025

== ENCOUNTER 2022-10-28 06:18 | Outpatient (REF) | payer OTHER, SELFPAY ==
[2022-10-28 06:30] LABS: MANUAL DIFF FLAG NO
[2022-10-28 07:45] LABS: Basophils Percent Auto 0.4 % (0-2); Eosinophils Absolute Auto 0.2 X10*3/uL (0.0-0.4); Eosinophils Percent Auto 2.3 % (0-4); Hematocrit 41.9 % (42.0-52.0); Hemoglobin 14.5 g/dl (14.0-18.0); Imm Gran Abs Auto 0.02 X10*3/uL (0.00-0.03); Imm Gran Pct Auto 0.3 % (0.0-0.4); Lymphocytes Absolute Auto 2.2 X10*3/uL (1.2-4.9); Lymphocytes Percent Auto 28.3 % (20-40); Mean Corpuscular HGB Conc 34.6 g/dl (31.0-36.0); Mean Corpuscular Hemoglobin 31.3 pg (27.0-33.0); Mean Corpuscular Volume 90.3 fL (80.0-98.0); Mean Platelet Volume 11.6 fL (9.4-12.4); Monocytes Absolute Auto 0.5 X10*3/uL (0.1-1.2); Monocytes Percent Auto 6.7 % (2-11); Neutrophils Absolute Auto 4.9 x10*3/uL (2.0-8.3); Platelet Count 232 X10*3/uL (160-400); Red Blood Count 4.64 X10*6/uL (4.60-5.80); Red Cell Distribution Width 12.1 % (11.0-16.0); White Blood Count 7.9 X10*3/uL (4.8-10.8)
[2022-10-28 08:12] LABS: Anion Gap 15 (12-20); Blood Urea Nitrogen 17 mg/dL (9-16); Calcium 9.5 mg/dL (8.4-10.2); Carbon Dioxide 25 mmol/L (22-29); Chloride 100 mmol/L (96-108); Estimated Glomerular Filt Rate > 60; Glucose Fasting 324 mg/dL (60-99); Lipase 50 U/L (8-78); Potassium 4.2 mmol/L (3.3-5.1); Sodium 136 mmol/L (135-145)
== END 2022-10-28 06:19 | disposition home or self-care (01) ==
LOC: HO.LAB 06:18
PROVIDERS: PCP Family Medicine; Visit Provider Family Medicine
DX: Z00.00 Encounter for general adult medical examination without abnormal findings (principal); E78.1 Pure hyperglyceridemia; E78.6 Lipoprotein deficiency; R73.01 Impaired fasting glucose
CPT/HCPCS: 36415; 80048; 83690; 85025

== ENCOUNTER → 2022-11-24 07:57 | Outpatient (REF) | payer OTHER, SELFPAY ==
--- NOTE | 2022-11-24 07:59 | CA_ITS ---
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 The calculated ejection fraction is 55% by biplane method. - No obvious valvular pathology seen on this study. Findings Left Ventricle Normal left ventricular cavity size. There is mildly increased left ventricular wall thickness. The left ventricular systolic function is normal. The calculated ejection fraction is 55% by biplane method. There is no evidence of regional wall motion abnormalities. Diastolic function is normal for age. LV peak GLS -20.3%. Right Ventricle There is normal right ventricular systolic function. Top normal size. Atria Both atria are normal in size. Aortic Valve There is a normal trileaflet aortic valve. There is no aortic valve stenosis. There is no aortic valve regurgitation. Mitral Valve The mitral valve appears normal. There is trace mitral valve regurgitation. There is no mitral valve stenosis. Pulmonic Valve The pulmonic valve is likely normal. Tricuspid Valve Normal tricuspid valve structure. There is trace tricuspid valve regurgitation. There is no evidence of pulmonary hypertension. Great Vessels The aortic annulus, sinuses of valsalva, and asc aorta are normal in size. Venous The inferior vena cava is normal in size and collapses greater than 50% with inspiration. Pericardium/Pleural There is no evidence of pericardial effusion. Prior Study Comparison No significant change compared to prior study dated: 06/11/2021. Recommendations, Care & Conclusions No obvious valvular pathology seen on this study. Measurements 2D Linear Measurements IVSd: 1.09 0.6-0.9/0.6-1.0 cm LVIDd: 4.87 3.9-5.3/4.2-5.9 cm LVIDd Index: 2.52 2.4-3.2/2.2-3.1 cm/m2 LVIDs: 2.99 2.0-3.6 cm LVPWd: 1.07 0.7-1.1 cm Ao Root: 3.20 2.1-3.5 cm LA Diam: 4.00 2.7-3.8/3.0-4.0 cm LAIDs Index: 2.07 1.5-2.3 cm/m2 LV Mass: 241.20 67-162/88-224 g LV Mass Index: 124.98 43-95/49-115 g/m2 LVOT Diam: 2.30 3.0+(-)1.3 cm 2D Systolic Function EF 4C: 55.30 >55% EF 2C: 52.50 >55% EF BiP: 55.20 >55% Mitral Valve MV Pk E: 0.59 MV PK A: 0.91 MV Decel Time: 146.00 E/A: 0.70 E'Lateral: 11.60 E'Medial: 8.05 E/E' Med: 7.30 E/E' Lat: 5.10 PHT: 43.00 MVA PHT: 5.[address] [place]: 4.06 Aortic Valve AoV Pk Matt: 1.32 AoV Mn Matt: 0.89 AoV VTI: 0.32 AoV Pk Grad: 7.00 Aov Mn Grad: 4.00 CARLEY Cont.VTI: 2.37 LVOT LVOT Pk Matt: 0.82 LVOT Mn Matt: 0.54 LVOT VTI: 0.19 LVOT Pk Grad: 3.00 LVOT Mn Grad: 1.00 LVOT Diam: 2.30 LVOT Area: 4.15 Diastolic Function MV Pk E: 0.59 MV Pk A: 0.91 E/A: 0.70 E'Medial: 8.05 E/E' Med: 7.30 E' Laterial: 11.60 E/E' Lat: 5.10 Right Ventricle TAPSE (mm): 26.20 TVS' Matt: 12.70 Tricuspid Valve TR Pk Matt: 2.14 TR Pk Grad: 18.00 RA Press: 3.00 Great Vessels Aorta Ao Root-2D: 3.20 2.0-3.7 cm Ao Asc: 3.10 2.1-3.4 cm Pulmonary Valve PV Pk Matt: 1.14 Peak PV Grad: 5.00 Updated in Other Vendor System with Status of Final Angelo Hansen MD electronically signed on 11/25/2022 5:01:07 PM with status of Final
== END ==
LOC: HO.CARD 07:57
PROVIDERS: PCP Family Medicine; Visit Provider Internal Medicine Cardiovascular Disease
DX: R00.0 Tachycardia, unspecified (principal)
CPT/HCPCS: 93306; 93356

== ENCOUNTER → 2022-12-15 08:27 | Outpatient (BNVA) | payer OTHER, SELFPAY | PROVIDERS: PCP Family Medicine; Referring Provider Family Medicine; Visit Provider Internal Medicine Cardiovascular Disease | DX: I42.9 Cardiomyopathy, unspecified (principal); E11.40 Type 2 diabetes mellitus with diabetic neuropathy, unspecified; Z96.0 Presence of urogenital implants | CPT/HCPCS: 93005; 99212 ==

== ENCOUNTER 2023-01-15 06:33 | Outpatient (REF) | payer OTHER, SELFPAY ==
[2023-01-15 08:16] LABS: Anion Gap 14 (12-20); Blood Urea Nitrogen 18 mg/dL (9-16); Calcium 9.8 mg/dL (8.4-10.2); Carbon Dioxide 26 mmol/L (22-29); Chloride 103 mmol/L (96-108); Cholesterol 147 mg/dL; Estimated Glomerular Filt Rate > 60; Glucose Fasting 111 mg/dL (60-99); HDL Cholesterol 50 mg/dL; LDL Cholesterol Calculated 78 mg/dl; Potassium 4.3 mmol/L (3.3-5.1); Sodium 139 mmol/L (135-145); Triglycerides 96 mg/dL
== END 2023-01-15 06:34 | disposition home or self-care (01) ==
LOC: HO.LAB 06:33
PROVIDERS: PCP Family Medicine; Visit Provider Family Medicine
DX: Z00.00 Encounter for general adult medical examination without abnormal findings (principal); E78.1 Pure hyperglyceridemia
CPT/HCPCS: 36415; 80048; 80061

== ENCOUNTER 2023-02-02 07:00 | Outpatient (RCR) | payer OTHER, SELFPAY ==
--- NOTE | 2023-01-22 15:28 | MHC.PT.EP ---
[facility] [place] [address] Office [place] Office [address] Greg Jung [address] [phone] F: [phone] F: [phone] F: [phone] F: [phone] Physical Therapy Plan of Care Date of Evaluation: Date of Surgery: Diagnosis: G62.9 Polyneuropathy, unspecified R26.9 Unspecified abnormalities E11.9 Type 2 DM without complications Neuropathy, Gait abnormality* DM signed by date of referral 01/08/23 PT eval and treat made by Dr. Luis Garcia Assessment: Pt is a 52 RHD y/o male, referred to PT from his PCP Dr. Garcia 01/08/23 for treatment of: Polyneuropathy: unspecified, unspecified abnormalities of gait and mobility, Neuropathy: Gait abnormality * Diabetes with diagnosis of DMII in October 2022. History acute hospitalization in February 2021 resulting in acute gallstone pancreatitis> hospitalized in ICU at [facility] office notes indicate approximately was in ICU close to a month duration resulting in history of renal stent insertion, history of iron deficient anemia, history of cardiac arrest with successful CPR resuscitation. Pt currently demonstrates decreased dynamic stability when ambulating on uneven terrain, decreased confidence when moving quickly/abruptly with movement, expresses unable to maintain himself for quick/dynamic recreational movements secondary to his impaired sensation/neuropathy. Pt expresses he is currently in between trial uses of CGM device to manage his DMII and is working with a nurse navigator who has set him up for some preliminary DM training (scheduled for a three part series education course at the [facility]). Due to insurance restrictions/limitations, pt has currently not yet obtained a CGM which he expresses is very difficult after having trialed/demo for several weeks. He expresses difficulty managing his diet and lacks understanding of how to adequately manage his carb counts/diet to impact blood sugar based on his activities. Pt would benefit specific individualized education for diabetes education/self management which can be offered within the endocrinology department (this would require a specific referral requesting diabetic education and training with endocrinology) as he presents with specific questions about his diet and daily management. 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 Stanley expresses difficulty sleeping and states his LTG is drive to be able to play soccer/run/bike/walk on uneven terrain. He will benefit from attending skilled PT services at a frequency of 2x/week x 4 weeks to address impairments of in static/dynamic balance, address deficits in gait abnormalities, and education of how to conditioning/strengthen himself with respect to balance impairments. Due to his overwhelming level stress and emotional state/anxiety demonstrated exhibited during intake, I feel he would benefit from referral to obtain counseling (he expressed he was open to this). Pt is very motivated and appears to be an excellent candidate for PT. SB, PT, DPT, had a conversation with Dr. Garcia in person today post eval inquiring about possible referral to [facility] counseling and referral for DM education/management within the endocrinology dept (in addition to his upcoming [place] educational classes/in house nurse navigation support). Stanley reports while in the hospital in February 2021, he was down to 120lbs, was back up to 168lbs, but has since lost 8-10lbs due to lack of eating/current diet. He verbalized being fearful of not fully understanding how to eat/count carbs/and how he is currently struggling with inconsistency of finger stick monitoring vs CGM in monitoring his blood sugars. He expresses high desire to obtain a CGM andrez. He has an appt with nurse navigator on , 01/21/23 to obtain follow up/ trial an alternate CGM unit. Frequency and Duration: The patient will be seen 2x/week x 4 weeks Short Term Goals: 1. Initiate HEP/self care. 2. Ambulate 1 mile on uneven terrain. 3. Sit<Stand and stand<>sit without evidence of LOB with use of 1 UE support. 4. Improve ABC score by 25%. 5. Improve dynamic stability/core strength one grade for activities within the home such as lawn care. Snf Goals: 1. I HEP/self care management. 2. Sit<>stand and stand<>sit No UE support, NO LOB. 3. Negotiate a flight of stairs carrying 10lb object in one hand with no LOB. 4. SLS 20 seconds with dynamic UE pertubations. 5. Strength hip abd /5. 6. Improve Tinetti balance score by 25%. 7. Resume participation in soccer/running/dynamic tasks MOD I with good safety insight/self care. 6. Strength hip ext 5/5 B. Treatment Plan: Modalities to reduce pain, spasms and effusion. Manual therapy to restore motion and function. Therapeutic exercise to improve strength and flexibility. Neuromuscular re-education for posture and balance. Therapeutic activities to return to functional activities of daily living. Electronically signed by: Nicole Navarro, PT, DPT Please sign and return to therapist. Thank you for your referral.
== END 2023-09-07 12:18 | disposition home or self-care (01) ==
LOC: HO.PTWFD 07:00
PROVIDERS: Visit Provider Family Medicine
DX: G62.9 Polyneuropathy, unspecified (principal); R26.9 Unspecified abnormalities of gait and mobility; E11.9 Type 2 diabetes mellitus without complications
CPT/HCPCS: 97110; 97140; 97162; 97530